=== PATIENT | male | born 1965 | race Caucasian/White ===

== ENCOUNTER 2019-06-12 19:05 | Emergency (ER) | payer OTHER ==
[2019-06-12 19:29] VITALS: TEMP 98.6
--- NOTE | 2019-06-12 20:11 | ED ---
General Adult HPI - General Chief complaint: Extremity Injury, Lower Stated complaint: Leg swelling Time Seen by Provider: 06/12/19 19:33 Source: patient Mode of arrival: ambulatory Limitations: no limitations - History of Present Illness Initial comments: 53-year-old male patient presents to the emergency department today for evaluation of right lower leg swelling and rash. Patient states that about a week ago he tripped up the stairs and cold his calf and hamstring muscle. Patient states is improving however he was doing some gardening and pulling bushes from the ground the other day. States that he woke up today with swelling and redness over the right anterior lower leg. Patient denies any itching or burning to the area. Denies any pain to the region. States he does feel some tenderness in his calf muscle. Patient does have history of DVT and takes pradaxa. He denies any fever or chills. Denies history of similar symptoms. Has no other areas of rash over his body. Patient denies any recent rash, shortness breath, chest pain, abdominal pain, nausea, vomiting, diarrhea, constipation, back pain, numbness, tingling, dizziness, weakness, hematuria, dysuria, urinary urgency, urinary frequency, headache, visual changes, or any ot her complaints. - Related Data Allergies Allergy/AdvReac Type Severity Reaction Status Date / Time ketamine Allergy Hallucinati Verified 06/12/19 19:29 ons Penicillins Allergy Anaphylaxis Verified 06/12/19 19:29 Review of Systems ROS Statement: Those systems with pertinent positive or pertinent negative responses have been documented in the HPI. ROS Other: All systems not noted in ROS Statement are negative. Past Medical History Additional Past Medical History / Comment(s): stage 3 bile duct cancer History of Any Multi-Drug Resistant Organisms: None Reported Past Surgical History: No Surgical Hx Reported Past Psychological History: Bipolar Smoking Status: Never smoker Past Alcohol Use History: None Reported Past Drug Use History: None Reported General Exam Limitations: no limitations General appearance: alert, in no apparent distress, other ENT exam: Present: normal exam, normal oropharynx, mucous membranes moist Respiratory exam: Present: normal lung sounds bilaterally. Absent: respiratory distress, wheezes, rales, rhonchi, stridor Cardiovascular Exam: Present: regular rate, normal rhythm, normal heart sounds. Absent: systolic murmur, diastolic murmur, rubs, gallop, clicks Extremities exam: Present: full ROM, normal capillary refill, other (Right lower leg swelling, there is erythematous/petechial rash noted to the anterior aspect of the vazquez. Edema is nonpitting. Pedal and posttibial pulses are 2+ and equal.). Absent: normal inspection, tenderness, pedal edema, joint swelling, calf tenderness Neurological exam: Present: alert, oriented X3, CN II-XII intact Psychiatric exam: Present: normal affect, normal mood Skin exam: Present: warm, dry, intact, normal color. Absent: rash Course Vital Signs 06/12/19 06/12/19 19:25 20:52 Temperature 98.6 F Pulse Rate 78 76 Respiratory 18 16 Rate Blood Pressure 149/90 146/83 O2 Sat by Pulse 96 100 Oximetry Medical Decision Making - Medical Decision Making 53-year-old male patient presented to the emergency department today for evaluation of right lower leg swelling and rash. Patient has history of DVT currently taking Pradaxa. Physical examination did reveal edema to the right lower leg and foot. There is petechial/erythematous rash noted to the anterior right lower leg. Pedal and posttibial pulses 2+ and equal bilaterally. Patient is afebrile. Labs reviewed and are unremarkable. Ultrasound of the right lower extremity was obtained and showed evidence for DVT to the right femoral, popliteal, and proximal calf veins. Given patient's history DVT and anticoagulation and presence of proximal vein involvement we'll admit to the [facility] for further evaluation. He'll be started on high-dose heparin. - Lab Data Result diagrams: 06/12/19 20:16 06/12/19 20:16 Lab Results 06/12/19 06/12/19 06/12/19 Range/Units 20:16 20:16 20:16 WBC 5.3 (3.8-10.6) k/uL RBC 3.38 L (4.30-5.90) m/uL Hgb 10.7 L (13.0-17.5) gm/dL Hct 31.0 L (39.0-53.0) % MCV 91.8 (80.0-100.0) fL MCH 31.6 (25.0-35.0) pg MCHC 34.4 (31.0-37.0) g/dL RDW 17.2 H (11.5-15.5) % Poikilocytosis Slight Anisocytosis Slight PT 10.0 (9.0-12.0) sec INR 0.9 (<1.2) APTT 29.0 (22.0-30.0) sec Sodium 139 (137-145) mmol/L Potassium 4.4 (3.5-5.1) mmol/L Chloride 110 H (98-107) mmol/L Carbon Dioxide 23 (22-30) mmol/L Anion Gap 6 mmol/L BUN 20 (9-20) mg/dL Creatinine 0.95 (0.66-1.25) mg/dL Est GFR (CKD-EPI)AfAm >90 (>60 ml/min/1.73 sqM) Est GFR (CKD-EPI)NonAf >90 (>60 ml/min/1.73 sqM) Glucose 113 H (74-99) mg/dL Calcium 8.7 (8.4-10.2) mg/dL Total Bilirubin 0.2 (0.2-1.3) mg/dL AST 18 (17-59) U/L ALT 22 (21-72) U/L Alkaline Phosphatase 82 (38-126) U/L Total Protein 6.6 (6.3-8.2) g/dL Albumin 3.7 (3.5-5.0) g/dL - Radiology Data Radiology results: report reviewed Venous Doppler duplex ultrasound of the right lower extremity was obtained. Report is reviewed in its entirety. Impression by Dr. Yadav shows acute deep venous thrombosis in the distal femoral vein, popliteal vein, and the calf veins. Disposition Clinical Impression: Right leg DVT Disposition: ADMITTED IP TO THIS [facility] Condition: Serious Referrals: Nonstaff,Physician [Primary Care Provider] - 1-2 days Decision to Admit Reason: Admit from EC Decision Date: 06/12/19 Decision Time: 20:57
--- NOTE | 2019-06-12 20:18 | US ---
EXAMINATION TYPE: US venous doppler duplex LE RT DATE OF EXAM: 06/12/2019 8:08 PM COMPARISON: NONE CLINICAL HISTORY: Pain. Right calf pain, swelling and redness. Patient stated fell off stairs 5 days ago; prior PE and left leg DVT / on blood thinner SIDE PERFORMED: Right TECHNIQUE: The lower extremity deep venous system is examined utilizing real time linear array sonog bola with graded compression, doppler sonography and color-flow sonography. VESSELS IMAGED: Common Femoral Vein Deep Femoral Vein Greater Saphenous Vein * Femoral Vein Popliteal Vein Small Saphenous Vein * Proximal Calf Veins (* superficial vessels) Right Leg: is positive for DVT Right Femoral Vein, Right Popliteal Vein; and in Upper Calf Veins IMPRESSION: There is acute deep venous in the distal femoral vein, popliteal vein and the calf veins.
[2019-06-12] MEDS ORDERED: HEPARIN SODIUM,PORCINE 10,000 UNIT/ML 1 ML VIAL IV ONE (20:32)
[2019-06-12] MEDS ORDERED: HEPARIN SODIUM,PORCINE 5,000 UNIT/ML 1 ML VIAL IV PRN (20:32)
[2019-06-12 20:34] LABS: INR 0.9 (<1.2)
[2019-06-12 20:37] LABS: ALT 22 U/L (21-72); AST 18 U/L (17-59); African American GFR (CKD) >90 (>60 ml/min/1.73 sqM); Albumin 3.7 g/dL (3.5-5.0); Alkaline Phosphatase 82 U/L (38-126); Anion Gap 6 mmol/L; Anisocytosis Slight; Blood Urea Nitrogen 20 mg/dL (9-20); Calcium 8.7 mg/dL (8.4-10.2); Carbon Dioxide 23 mmol/L (22-30); Chloride 110 mmol/L (98-107); Glucose 113 mg/dL (74-99); HGB 10.7 gm/dL (13.0-17.5); MCH 31.6 pg (25.0-35.0); MCHC 34.4 g/dL (31.0-37.0); MCV 91.8 fL (80.0-100.0); Mean Platelet Volume 8.8; Poikilocytosis Slight; Potassium 4.4 mmol/L (3.5-5.1); RBC 3.38 m/uL (4.30-5.90); RDW 17.2 % (11.5-15.5); Sodium 139 mmol/L (137-145); Total Bilirubin 0.2 mg/dL (0.2-1.3); Total Protein 6.6 g/dL (6.3-8.2); WBC 5.3 k/uL (3.8-10.6)
[2019-06-12] MEDS ORDERED: HEPARIN SOD,PORK IN 0.45% NACL 25,000 UNIT in 0.45% NACL 1 250ML.BAG IV SCH (20:45)
[2019-06-12 20:54] VITALS: BP 146/83; PULSE 76; RESP 16
[2019-06-12] MEDS ORDERED: NALOXONE 0.4 MG/ML 1 ML VIAL IV PRN (20:55)
[2019-06-12 20:59] LABS: Basophils # (M) 0.05 k/uL (0-0.2); Eosinophils # (M) 0.16 k/uL (0-0.7); Lymphocytes # (M) 2.12 k/uL (1.0-4.8); Monocytes # (M) 0.37 k/uL (0-1.0); Neutrophils % (M) 49 %; Nucleated Red Blood Cells 0 /100 WBC (0-0); Total Cells Counted 100
[2019-06-12 21:00] LABS: Platelet Count 88 k/uL (150-450)
[2019-06-12] MEDS ORDERED: SODIUM CHLORIDE 0.9% 1,000 ML IV SCH (21:00)
--- NOTE | 2019-06-12 21:59 | ED ---
Medical Decision Making - Medical Decision Making 53-year-old male patient presents to the emergency department today for evaluation of right leg swelling, discomfort, and rash. Physical examination did reveal edema to the right low leg and foot. Previous documentation for further history. Plan was for admission however he was seen and evaluated by Dr. Perkins from [facility]. Patient does have history of cancer and DVT . He has been on Lovenox in the past. He has appointment with his oncologist/mold presser on Saturday. He does feel comfortable being discharged home on lovenox. He is instructed to keep his appointment. Return parameters including s/sx of PE. He verbalizes understanding and agrees with this plan. - Lab Data Result diagrams: 06/12/19 20:16 06/12/19 20:16 Lab Results 06/12/19 06/12/19 06/12/19 Range/Units 20:16 20:16 20:16 WBC 5.3 (3.8-10.6) k/uL RBC 3.38 L (4.30-5.90) m/uL Hgb 10.7 L (13.0-17.5) gm/dL Hct 31.0 L (39.0-53.0) % MCV 91.8 (80.0-100.0) fL MCH 31.6 (25.0-35.0) pg MCHC 34.4 (31.0-37.0) g/dL RDW 17.2 H (11.5-15.5) % Plt Count 88 L (150-450) k/uL Neutrophils % (Manual) 49 % Lymphocytes % (Manual) 40 % Monocytes % (Manual) 7 % Eosinophils % (Manual) 3 % Basophils % (Manual) 1 % Neutrophils # (Manual) 2.60 (1.3-7.7) k/uL Lymphocytes # (Manual) 2.12 (1.0-4.8) k/uL Monocytes # (Manual) 0.37 (0-1.0) k/uL Eosinophils # (Manual) 0.16 (0-0.7) k/uL Basophils # (Manual) 0.05 (0-0.2) k/uL Nucleated RBCs 0 (0-0) /100 WBC Manual Slide Review Performed Poikilocytosis Slight Anisocytosis Slight PT 10.0 (9.0-12.0) sec INR 0.9 (<1.2) APTT 29.0 (22.0-30.0) sec Sodium 139 (137-145) mmol/L Potassium 4.4 (3.5-5.1) mmol/L Chloride 110 H (98-107) mmol/L Carbon Dioxide 23 (22-30) mmol/L Anion Gap 6 mmol/L BUN 20 (9-20) mg/dL Creatinine 0.95 (0.66-1.25) mg/dL Est GFR (CKD-EPI)AfAm >90 (>60 ml/min/1.73 sqM) Est GFR (CKD-EPI)NonAf >90 (>60 ml/min/1.73 sqM) Glucose 113 H (74-99) mg/dL Calcium 8.7 (8.4-10.2) mg/dL Total Bilirubin 0.2 (0.2-1.3) mg/dL AST 18 (17-59) U/L ALT 22 (21-72) U/L Alkaline Phosphatase 82 (38-126) U/L Total Protein 6.6 (6.3-8.2) g/dL Albumin 3.7 (3.5-5.0) g/dL Disposition Clinical Impression: Right leg DVT Disposition: HOME SELF-CARE Condition: Good Instructions (If sedation given, give patient instructions): Poison Suni (ED), Deep Vein Thrombosis (ED) Additional Instructions: Continue Lovenox. Continue home medications as directed. Follow-up with your mold presser/oncologist as soon as possible. Return immediately should she develop any chest pain, shortness of breath, racing heart. Return for any other new, worsening, or concerning symptoms. Prescriptions: Hydrocortisone Cream [Hydrocortisone 2.5% Cream] 1 applic TOPICAL TID #15 gm Enoxaparin [Lovenox] 120 mg SQ Q12H #14 syringe Is patient prescribed a controlled substance at d/c from ED?: No Referrals: Nonstaff,Physician [Primary Care Provider] - 1-2 days Time of Disposition: 21:59
[2019-06-12] MEDS ORDERED: ENOXAPARIN 120 MG/0.8 ML SYRINGE SQ STA (22:05)
== END 2019-06-12 22:24 | disposition home or self-care (01) ==
LOC: EC 19:05 → 4MS4W 20:23 → UNDOADMIN 20:23 → EC 22:24
DX: I82.411 Acute embolism and thrombosis of right femoral vein (principal); I82.431 Acute embolism and thrombosis of right popliteal vein; Z88.0 Allergy status to penicillin; Z88.4 Allergy status to anesthetic agent; Z85.09 Personal history of malignant neoplasm of other digestive organs
CPT/HCPCS: 36415; 80053; 85025; 85610; 85730; 93971; 99284; 96365; 96376; 96372; J1644 ×2; J1650

== ENCOUNTER 2019-06-23 16:10 | Inpatient (IN) | payer OTHER ==
--- NOTE | 2019-06-23 16:28 | ED ---
General Adult HPI - General Chief complaint: Shortness of Breath Stated complaint: sent by has large PE RT LUNG Time Seen by Provider: 06/23/19 16:19 Source: patient, RN notes reviewed Mode of arrival: wheelchair Limitations: no limitations - History of Present Illness Initial comments: Patient is a pleasant 53-year-old male presenting to the emergency department for reported pulmonary embolism. Patient states he was in the emergency department a few weeks ago and diagnosed with DVT. Patient is on Lovenox since that time, 120 mg twice a day. Patient denies any symptoms at this point. No chest pain or difficulty breathing. Patient does have known stage III gallbladder cancer that is in his doctor. Patient is currently under chemotherapy for this. Last treatment was one week ago. Patient was called after his computed tomography scan today and advised to go to the emergency department. Patient does not have report or copy of the CD. - Related Data Home Medications Medication Instructions Recorded Confirmed Citalopram Hydrobromide [CeleXA] 40 mg PO DAILY 06/12/19 06/23/19 lamoTRIgine [LaMICtal] 100 mg PO DAILY 06/12/19 06/23/19 Previous Rx's Medication Instructions Recorded Enoxaparin [Lovenox] 120 mg SQ Q12H #14 syringe 06/12/19 Allergies Allergy/AdvReac Type Severity Reaction Status Date / Time ketamine Allergy Hallucinati Verified 06/23/19 16:36 ons Penicillins Allergy Anaphylaxis Verified 06/23/19 16:36 Review of Systems ROS Statement: Those systems with pertinent positive or pertinent negative responses have been documented in the HPI. ROS Other: All systems not noted in ROS Statement are negative. Constitutional: Denies: fever Eyes: Denies: eye pain ENT: Denies: ear pain Respiratory: Denies: cough, dyspnea Cardiovascular: Denies: chest pain, palpitations Endocrine: Denies: fatigue Gastrointestinal: Denies: abdominal pain Genitourinary: Denies: dysuria Musculoskeletal: Denies: back pain Skin: Denies: rash Neurological: Denies: weakness Past Medical History Past Medical History: Deep Vein Thrombosis (DVT), Pulmonary Embolus (PE) Additional Past Medical History / Comment(s): stage 3 bile duct cancer History of Any Multi-Drug Resistant Organisms: None Reported Past Surgical History: No Surgical Hx Reported Past Psychological History: Bipolar Smoking Status: Never smoker Past Alcohol Use History: None Reported Past Drug Use History: None Reported General Exam Limitations: no limitations General appearance: alert, in no apparent distress Head exam: Present: atraumatic Eye exam: Present: normal appearance, PERRL ENT exam: Present: normal oropharynx Neck exam: Present: normal inspection Respiratory exam: Present: normal lung sounds bilaterally. Absent: chest wall tenderness Cardiovascular Exam: Present: regular rate, normal rhythm Expanded Peripheral pulses: 2+: Posterior Tibialis (R), Posterior Tibialis (L) GI/Abdominal exam: Present: soft. Absent: tenderness Extremities exam: Present: pedal edema (+1 on the right). Absent: calf tenderness Neurological exam: Present: alert Psychiatric exam: Present: normal affect, normal mood Skin exam: Present: normal color Course Vital Signs 06/23/19 06/23/19 16:11 18:15 Temperature 97.8 F Pulse Rate 88 74 Respiratory 18 20 Rate Blood Pressure 174/75 147/90 O2 Sat by Pulse 97 98 Oximetry - Reevaluation(s) Reevaluation #1: 06/23/19 16:26 [facility] is being contacted now for results. 06/23/19 17:27 Still unable to get a hold of anybody at [facility] for information. Case was discussed with Dr. Navarro who does agree with high dose heparin and admission. 06/23/19 18:34 CT report was received from [facility] showing right-sided pulmonary emboli, acute. 2 lesser degree left lingula and left lower lobe pulmonary emboli. No definite evidence of right heart strain. 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 EKG Findings - EKG Comments: EKG Findings:: Normal sinus rhythm 79. W[place] 168. QRS 94. QT 398. QTC 456. Normal axis. Normal QRS. No acute ST change. Medical Decision Making - Medical Decision Making Case was discussed with Dr. novak for admission. He will let Dr. Kleber rebolledo about case and have them call back. - Lab Data Result diagrams: 06/23/19 17:00 06/23/19 17:00 Lab Results 06/23/19 06/23/19 06/23/19 Range/Units 17:00 17:00 17:00 WBC 3.3 L (3.8-10.6) k/uL RBC 3.54 L (4.30-5.90) m/uL Hgb 10.8 L (13.0-17.5) gm/dL Hct 32.2 L (39.0-53.0) % MCV 90.9 (80.0-100.0) fL MCH 30.5 (25.0-35.0) pg MCHC 33.6 (31.0-37.0) g/dL RDW 17.0 H (11.5-15.5) % Plt Count 116 L (150-450) k/uL Anisocytosis Slight PT 9.8 (9.0-12.0) sec INR 0.9 (<1.2) APTT 29.0 (22.0-30.0) sec Sodium 139 (137-145) mmol/L Potassium 3.8 (3.5-5.1) mmol/L Chloride 107 (98-107) mmol/L Carbon Dioxide 24 (22-30) mmol/L Anion Gap 8 mmol/L BUN 13 (9-20) mg/dL Creatinine 0.91 (0.66-1.25) mg/dL Est GFR (CKD-EPI)AfAm >90 (>60 ml/min/1.73 sqM) Est GFR (CKD-EPI)NonAf >90 (>60 ml/min/1.73 sqM) Glucose 127 H (74-99) mg/dL Calcium 9.1 (8.4-10.2) mg/dL Total Bilirubin 0.3 (0.2-1.3) mg/dL AST 36 (17-59) U/L ALT 111 H (21-72) U/L Alkaline Phosphatase 96 (38-126) U/L Troponin I (0.000-0.034) ng/mL Total Protein 6.9 (6.3-8.2) g/dL Albumin 3.9 (3.5-5.0) g/dL 06/23/19 Range/Units 17:00 WBC (3.8-10.6) k/uL RBC (4.30-5.90) m/uL Hgb (13.0-17.5) gm/dL Hct (39.0-53.0) % MCV (80.0-100.0) fL MCH (25.0-35.0) pg MCHC (31.0-37.0) g/dL RDW (11.5-15.5) % Plt Count (150-450) k/uL Anisocytosis PT (9.0-12.0) sec INR (<1.2) APTT (22.0-30.0) sec Sodium (137-145) mmol/L Potassium (3.5-5.1) mmol/L Chloride (98-107) mmol/L Carbon Dioxide (22-30) mmol/L Anion Gap mmol/L BUN (9-20) mg/dL Creatinine (0.66-1.25) mg/dL Est GFR (CKD-EPI)AfAm (>60 ml/min/1.73 sqM) Est GFR (CKD-EPI)NonAf (>60 ml/min/1.73 sqM) Glucose (74-99) mg/dL Calcium (8.4-10.2) mg/dL Total Bilirubin (0.2-1.3) mg/dL AST (17-59) U/L ALT (21-72) U/L Alkaline Phosphatase (38-126) U/L Troponin I <0.012 (0.000-0.034) ng/mL Total Protein (6.3-8.2) g/dL Albumin (3.5-5.0) g/dL Critical Care Time Critical Care Time: Yes Total Critical Care Time: 31 Disposition Clinical Impression: Pulmonary embolism Disposition: ADMITTED IP TO THIS HOSP Is patient prescribed a controlled substance at d/c from ED?: No Referrals: Nonstaff,Physician [Primary Care Provider] - 1-2 days Decision Time: 18:35
[2019-06-23] MEDS ORDERED: HEPARIN SODIUM,PORCINE 5,000 UNIT/ML 1 ML VIAL IV PRN (17:27)
[2019-06-23] MEDS ORDERED: HEPARIN SODIUM,PORCINE 10,000 UNIT/ML 1 ML VIAL IV ONE (17:27)
[2019-06-23 17:32] LABS: INR 0.9 (<1.2); Prothrombin Time 9.8 sec (9.0-12.0)
[2019-06-23 17:42] LABS: Anisocytosis Slight; HCT 32.2 % (39.0-53.0); HGB 10.8 gm/dL (13.0-17.5); MCH 30.5 pg (25.0-35.0); MCHC 33.6 g/dL (31.0-37.0); MCV 90.9 fL (80.0-100.0); Mean Platelet Volume 7.5; Platelet Count 116 k/uL (150-450); RBC 3.54 m/uL (4.30-5.90); WBC 3.3 k/uL (3.8-10.6)
[2019-06-23 17:43] LABS: ALT 111 U/L (21-72); AST 36 U/L (17-59); African American GFR (CKD) >90 (>60 ml/min/1.73 sqM); Albumin 3.9 g/dL (3.5-5.0); Alkaline Phosphatase 96 U/L (38-126); Anion Gap 8 mmol/L; Blood Urea Nitrogen 13 mg/dL (9-20); Calcium 9.1 mg/dL (8.4-10.2); Carbon Dioxide 24 mmol/L (22-30); Chloride 107 mmol/L (98-107); Glucose 127 mg/dL (74-99); Potassium 3.8 mmol/L (3.5-5.1); Sodium 139 mmol/L (137-145); Total Bilirubin 0.3 mg/dL (0.2-1.3); Total Protein 6.9 g/dL (6.3-8.2)
[2019-06-23] MEDS: HEPARIN SOD,PORK IN 0.45% NACL 25,000 UNIT in 0.45% NACL 1 250ML.BAG IV SCH (18:20)
[2019-06-23] MEDS ORDERED: SODIUM CHLORIDE 0.9% 500 ML 500 ML IV SCH (18:30)
[2019-06-23] MEDS ORDERED: NALOXONE 0.4 MG/ML 1 ML VIAL IV PRN (18:35)
[2019-06-23] MEDS ORDERED: SODIUM CHLORIDE 0.9% 1,000 ML IV SCH (18:45)
[2019-06-23 18:46] LABS: Band Neutrophils % 4 %; Eosinophils # (M) 0.03 k/uL (0-0.7); Lymphocytes # (M) 1.68 k/uL (1.0-4.8); Metamyelocytes # (M) 0.17 k/uL (0); Metamyelocytes % 5 %; Myelocytes # (M) 0.23 k/uL (0); Myelocytes % 7 %; Neutrophils % (M) 28 %; Nucleated Red Blood Cells 0 /100 WBC (0-0); Total Cells Counted 200
[2019-06-23 18:47] LABS: Anisocytosis (M) Present; Hypochromasia (M) Present; Poikilocytosis (M) Present; Polychromasia Present
[2019-06-23] MEDS ORDERED: diphenhydrAMINE 25 MG CAP PO PRN (21:30)
--- NOTE | 2019-06-23 22:13 | P.HPIM ---
History of Present Illness H&P Date: 06/23/19 Chief Complaint: acute PE 53 year old male with history of bile duct cancer, stage 3 currently on chemotherapy , diagnosed September 2018 patient was diagnosed with acute right LE DVT involving his right femoral and popliteal vein and extends to the calf vein, about 2 weeks ago, then he was started on lovenox through [facility] . he has been taking 120 mg twice aday since diagnosis. today he got routine CT for follow up on his cancer, he received a phone call later by his doctor from [facility] , informing him that bilateral PE was found and recommending that he goes to the hospital for evaluation. patient denies any symptoms fo chest pain, SOB, fever or chills. he reports that symptoms of leg swelling and discomfort has resolved since he started the luis enox. patient admitted for monitoring and further evaluation. CT report did not show any right heart strain. patient was started on high dose heparin drip per pulmonary recommendations. labs showed mild anemia and thrombocytopenia . patient recalls history of PE in 2006 after an accident. however this time, he reports an injury couple weeks ago to his LE, and also admits to prolonged periods of bed rest especially after chemotherapy. otherwise denies any traveling or recent surgeries. He reports that the day of diagnosis , [place] , and noticed leg swelling after [place] the zoo with [place]. Review of Systems Pertinent positives as noted in HPI. All other systems were reviewed and are negative Past Medical History Past Medical History: Deep Vein Thrombosis (DVT), Pulmonary Embolus (PE) Additional Past Medical History / Comment(s): stage 3 bile duct cancer History of Any Multi-Drug Resistant Organisms: None Reported Past Surgical History: No Surgical Hx Reported Past Psychological History: Bipolar Smoking Status: Never smoker Past Alcohol Use History: None Reported Past Drug Use History: None Reported - Past Family History family Additional Family Medical History / Comment(s): denies history of blood clots in the family Medications and Allergies Home Medications Medication Instructions Recorded Confirmed Type Citalopram Hydrobromide [CeleXA] 40 mg PO DAILY 06/12/19 06/23/19 History Enoxaparin [Lovenox] 120 mg SQ Q12H #14 syringe 06/12/19 06/23/19 Rx lamoTRIgine [LaMICtal] 100 mg PO DAILY 06/12/19 06/23/19 History Allergies Allergy/AdvReac Type Severity Reaction Status Date / Time ketamine Allergy Hallucinati Verified 06/23/19 16:36 ons Penicillins Allergy Anaphylaxis Verified 06/23/19 16:36 Physical Exam Vitals: Vital Signs Temp Pulse Resp BP Pulse Ox 06/23/19 18:15 74 20 147/90 98 06/23/19 16:11 97.8 F 88 18 174/75 97 Intake and Output 06/23/19 06/23/19 06/23/19 06:59 14:59 22:59 Other: Weight 122.515 kg Constitutional: No acute distress, conversant, pleasant Eyes: Anicteric sclerae, moist conjunctiva, no lid-lag Pupils equal round reactive to light ENMT: NC/AT Oropharynx clear, no erythema, or exudates Neck: Supple, FROM, no masses, or JVD No carotid bruits No thyromegaly Lungs: Clear to auscultation Clear to percussion Normal respiratory effort, no accessory muscle use Cardiovascular: Heart regular in rate and rhythm, No murmurs, gallops, or rubs No peripheral edema Abdominal: Soft Nontender, no guarding, rebound or rigidity Abdomen moving with respiration Normoactive bowel sounds No hepatomegaly, No splenomegaly No palpable mass No abdominal wall hernia noted Skin: Normal temperature, tone, texture, turgor No induration No subcutaneous nodules No rash, lesions No ulcers Extremities: No digital cyanosis No clubbing Pedal pulses intact and symmetrical Radial pulses intact and symmetrical No calf tenderness Psychiatric: Alert and oriented to person, place and time Appropriate affect fair judgment Neuro Muscles Strength 5/5 in all 4 extremities Sensation to light touch grossly present throughout Cranial nerves II-XII grossly intact No focal sensory deficits Lymphatics: no palpable cervical or supraclavicular , or inguinal lymph nodes Results CBC & Chem 7: 06/23/19 17:00 06/23/19 17:00 Labs: Abnormal Lab Results - Last 24 Hours (Table) 06/23/19 06/23/19 Range/Units 17:00 17:00 WBC 3.3 L (3.8-10.6) k/uL RBC 3.54 L (4.30-5.90) m/uL Hgb 10.8 L (13.0-17.5) gm/dL Hct 32.2 L (39.0-53.0) % RDW 17.0 H (11.5-15.5) % Plt Count 116 L (150-450) k/uL Neutrophils # (Manual) 1.00 L (1.3-7.7) k/uL Metamyelocytes # (Man) 0.17 H (0) k/uL Myelocytes # (Manual) 0.23 H (0) k/uL Glucose 127 H (74-99) mg/dL ALT 111 H (21-72) U/L Assessment and Plan Assessment: 53 year old male with gall bladder cancer stage 3, admitted as inpatient with anticipated length of stay >48 hours due to aucte PE, recently diagnosed with right LE DVT. Plan: acute pulmonary embolism , with recent diagnosis of right DVT start heparin drip monitor vital sings closely assess oxygen requirement patient was told that he would be switched to NOAC once he is done with chemotherapy CT from [facility] showed no evidence of Right RV strain patient would be a life long anticoagulation , this is his second episode of PE. history of gall bladder cancer stage 3 on chemotherapy continue OP follow up CODE STATUS:full code Discussed with: Patient, ER, RN Anticipated discharge: 48-[address]: home A total of 60 minutes was spent on the care of this complex patient more than 50% of the time was spent in counseling and care coordination.
[2019-06-24 01:02] VITALS: BMI 38.7
[2019-06-24] MEDS: HEPARIN SOD,PORK IN 0.45% NACL 25,000 UNIT in 0.45% NACL 1 250ML.BAG IV SCH (06:18)
[2019-06-24 07:30] LABS: Anisocytosis Slight; HCT 31.2 % (39.0-53.0); HGB 10.2 gm/dL (13.0-17.5); MCHC 32.8 g/dL (31.0-37.0); MCV 91.4 fL (80.0-100.0); Mean Platelet Volume 7.7; RBC 3.41 m/uL (4.30-5.90); RDW 17.6 % (11.5-15.5)
[2019-06-24 07:40] LABS: Platelet Count 83 k/uL (150-450)
[2019-06-24 08:02] LABS: Band Neutrophils % 5 %; Eosinophils # (M) 0.08 k/uL (0-0.7); Metamyelocytes # (M) 0.12 k/uL (0); Metamyelocytes % 3 %; Monocytes # (M) 0.44 k/uL (0-1.0); Neutrophils % (M) 46 %; Nucleated Red Blood Cells 1 /100 WBC (0-0); Total Cells Counted 200
[2019-06-24 08:03] LABS: Polychromasia Present
[2019-06-24] MEDS ORDERED: lamoTRIgine 100 MG TAB PO SCH (09:00)
[2019-06-24] MEDS ORDERED: CITALOPRAM HYDROBROMIDE 20 MG TAB PO SCH (09:00)
[2019-06-24] MEDS ORDERED: PANTOPRAZOLE 40 MG/10 ML VIAL IV SCH (09:00)
--- NOTE | 2019-06-24 14:14 | P.DS ---
Providers Date of admission: 06/23/19 18:35 Expected date of discharge: 06/24/19 Attending physician: Alvin Hardy MD Consults: 06/23/19 18:37 Consult Physician Urgent Consulting Provider: Karthikeyan Potter Reason/Comments: Pulmonary embolism Do you want consulting provider notified?: Already Contacted Primary care physician: Physician Nonstaff Hospital Course: 53-year-old male with PMH of stage III bile duct cancer, previous history of DVT and PE presents to the ED after being found to have bilateral PE on routine chest CT that he was getting for his cancer. Patient otherwise had no symptoms. He denied any chest pain, shortness of breath or palpitations. Patient reports being started initially on Pradaxa after his last DVT. Patient states that he was noncompliant with his Pradaxa and was admitted for acute PE. He was discharged on therapeutic Lovenox twice a day and has been compliant since. His been on Lovenox for the past 2 weeks. Patient was seen and examined. No acute events overnight. Patient denies any chest pain, shortness of breath or palpitations. No nausea or vomiting. No fever or chills. Wanting to go home. General: [non toxic], [no distress], [appears at stated age] Derm: [warm], [dry] Head: [atraumatic], [normocephalic], [symmetric] Eyes: [EOMI], [no lid lag], [anicteric sclera] Mouth: [no lip lesion], [mucus membranes moist] Cardiovascular: [S1S2 reg], [no murmur], [positive DP pulse bilateral] Lungs: [CTA bilateral], [no rhonchi, no rales] , [no accessory muscle use] Abdominal: [soft], [ nontender to palpation], [no guarding], [no appreciable organomegaly] Ext: [no gross muscle atrophy], [no edema], [no contractures] Neuro: [no focal neuro deficits] Psych: [Alert], [oriented], [appropriate affect] Assessment and Plan Acute PE with recent diagnosis of right DVT Gallbladder cancer stage III on chemotherapy Patient is hemodynamically stable. No right heart strain on CTA chest. Plans: Would recommend continuation of therapeutic Lovenox. Plans to transition to Pradaxa after chemotherapy. Follow pulmonology consultation. Plans: Needs adequate outpatient follow-up. [Patient will be discharged home pending pulmonology clearance. Likely to continue taking Lovenox 120 mg subcutaneous twice a day. Needs to follow with oncologist] Patient Condition at Discharge: Stable Plan - Discharge Summary Discharge Rx Participant: No New Discharge Prescriptions: Continue lamoTRIgine [LaMICtal] 100 mg PO DAILY Citalopram Hydrobromide [CeleXA] 40 mg PO DAILY Enoxaparin [Lovenox] 120 mg SQ Q12H #14 syringe Discharge Medication List Citalopram Hydrobromide [CeleXA] 40 mg PO DAILY 06/12/19 [History] Enoxaparin [Lovenox] 120 mg SQ Q12H #14 syringe 06/12/19 [Rx] lamoTRIgine [LaMICtal] 100 mg PO DAILY 06/12/19 [History] Follow up Appointment(s)/Referral(s): Nonstaff,Physician [Primary Care Provider] - 1-2 days Karthikeyan Potter DO [Doctor of Osteopathic Medicine] - 1 Week Activity/Diet/Wound Care/Special Instructions: Diet: Heart healthy Follow-up PCP within 1-2 days of discharge. Follow-up with your oncologist within 1 week of discharge. Follow-up with pulmonology within 1 week of discharge. Take all medications as advised. Discharge Disposition: HOME SELF-CARE
[2019-06-24] MEDS ORDERED: ENOXAPARIN 100 MG/ML SYRINGE SQ STA (15:49)
[2019-06-24 16:44] VITALS: BP 128/82; PULSE 69; RESP 18; TEMP 96.9
--- NOTE | 2019-06-24 21:58 | CONS ---
CONSULTATION PULMONARY/CRITICAL CARE CONSULTATION: DATE OF SERVICE: 06/24/2019 This is a 53-year-old male who has a history of biliary cancer who apparently was sent to the emergency room because of a CT angiogram done at the [facility] in [place] which apparently revealed evidence of a large clot/pulmonary embolism in the right lung. Interestingly, the patient is completely asymptomatic. He denies any shortness of breath, chest tightness, cough, wheezing, phlegm production, fever, chills, chest pain, chest discomfort, etc. He apparently was in the emergency room a few weeks back and apparently was diagnosed with acute DVT and has since been on Lovenox 120 mg subcutaneously twice a day. He apparently had been taking the Lovenox usually in the morning but sometimes missing his evening dose. When I spoke to Dr. Gupta in the emergency room yesterday, Dr. Gupta apparently did not have the report of the CT angiogram that was done at the [facility]. That report is now in the medical record. The patient is doing well and would like to be discharged home. Of course, that is up to his primary care provider. HOME MEDICATIONS: His home medications include Lamictal and Celexa. He is also on Lovenox 120 mg subcutaneously twice a day. ALLERGIES: KETAMINE and PENICILLIN. PAST MEDICAL HISTORY: Past medical history is apparently positive for DVT and more recently a large pulmonary embolism in the right lung. He also has advanced bile duct cancer. SURGICAL HISTORY: Surgical history is negative. SOCIAL HISTORY: Negative for alcohol, tobacco or illicit drug use. FAMILY HISTORY: Apparently unremarkable. I do take care of Nima's father, who has chronic obstructive pulmonary disease. I believe Nima's father was a smoker. The rest of his family history is unremarkable. REVIEW OF SYSTEMS: CONSTITUTIONAL: Negative. NEUROLOGIC: Negative. HEENT: Negative. CARDIOVASCULAR: Negative. PULMONARY: Negative. GI: Negative. : Negative. RHEUMATOLOGIC: Negative. IMMUNOLOGIC: Negative. ENDOCRINOLOGIC: Negative. DERMATOLOGIC: Negative. PHYSICAL EXAMINATION: VITAL SIGNS: Current vital signs are reviewed. Temperature 98.1, heart rate 65, respiratory rate 16, blood pressure 130/76, mean 94, room-air saturation 97%. GENERAL: Appears in no acute distress. HEENT: HEENT examination is grossly unremarkable. No supplemental oxygen. NECK: Supple. Full range of motion. No adenopathy. CARDIOVASCULAR: Cardiovascular examination reveals regular rhythm and rate. Heart rate 65. S1, S2 normal. LUNGS: Relatively clear breath sounds. No wheezes, rhonchi or crackles. ABDOMEN: Soft. Bowel sounds are heard. EXTREMITIES: Intact. No cyanosis, clubbing or edema. SKIN: Without rash. NEUROLOGIC: Neurologic examination is brief but nonfocal. LAB DATA: Reviewed. White count 4, hemoglobin 10.2, hematocrit 31.2, platelet count 83,000. His PT, INR, and PTT are normal. More recently he was on IV heparin. That has been discontinued. Sodium, potassium, chloride, CO2 normal. BUN is 13, creatinine 0.91. The rest of the labs look okay. Anion gap is normal. Medications are reviewed. He is basically just on Celexa, Benadryl, Lovenox, IV heparin, which has been discontinued, Lamictal, Narcan, Protonix and a basic IV. EKG shows normal sinus rhythm. ASSESSMENT: 1. Asymptomatic right-sided pulmonary embolism. 2. History of deep venous thrombosis. 3. Stage III cholangiocarcinoma. PLAN: The patient may be discharged home today. He is going to go home on Lovenox, which is 1 mg/kg body weight twice a day subcutaneously. [facility]. No additional recommendations are made. We will continue to follow. Prognosis is guarded, given his stage III cholangiocarcinoma. MMODL / IJN: [id number] /
== END 2019-06-24 16:41 | disposition home or self-care (01) | DRG 176 ==
LOC: EC 16:10 → 3SCARD 18:35
PROVIDERS: ADMIT Internal Medicine; ATTEND Internal Medicine
DX: I26.99 Other pulmonary embolism without acute cor pulmonale (principal); C22.1 Intrahepatic bile duct carcinoma; C23 Malignant neoplasm of gallbladder; D64.9 Anemia, unspecified; D69.6 Thrombocytopenia, unspecified; Z79.01 Long term (current) use of anticoagulants; Z79.02 Long term (current) use of antithrombotics/antiplatelets; Z79.899 Other long term (current) drug therapy; Z82.5 Family history of asthma and other chronic lower respiratory diseases; Z86.711 Personal history of pulmonary embolism; Z86.718 Personal history of other venous thrombosis and embolism; T45.516A Underdosing of anticoagulants, initial encounter; Z91.128 Patient's intentional underdosing of medication regimen for other reason; Z88.0 Allergy status to penicillin; Z88.8 Allergy status to other drugs, medicaments and biological substances; F31.9 Bipolar disorder, unspecified
CPT/HCPCS: 36415; 80053; 83880; 84484; 85025; 85610; 85730; 93005; 96365; 96366; 96376; 99291

== ENCOUNTER 2019-09-11 18:09 | Inpatient (IN) | payer OTHER ==
[2019-09-11] MEDS ORDERED: ONDANSETRON 4 MG/2 ML VIAL IVP STA (18:31)
[2019-09-11] MEDS ORDERED: SODIUM CHLORIDE 0.9% 1,000 ML IV STA (18:32)
[2019-09-11 18:40] LABS: Basophils % (A) 1 %; Eosinophils # (A) 0.1 k/uL (0-0.7); Eosinophils % (A) 2 %; HGB 11.9 gm/dL (13.0-17.5); Lymphocytes # (A) 0.4 k/uL (1.0-4.8); Lymphocytes % (A) 12 %; MCH 31.4 pg (25.0-35.0); MCV 92.2 fL (80.0-100.0); Mean Platelet Volume 7.2; Monocytes # (A) 0.3 k/uL (0-1.0); Monocytes % (A) 10 %; Neutrophils # (A) 2.3 k/uL (1.3-7.7); Neutrophils % (A) 71 %; RBC 3.79 m/uL (4.30-5.90); RDW 14.6 % (11.5-15.5); WBC 3.2 k/uL (3.8-10.6)
[2019-09-11 18:48] LABS: ALT 56 U/L (21-72); AST 34 U/L (17-59); African American GFR (CKD) >90 (>60 ml/min/1.73 sqM); Albumin 3.7 g/dL (3.5-5.0); Alkaline Phosphatase 86 U/L (38-126); Amylase 51 U/L (30-110); Anion Gap 7 mmol/L; Blood Urea Nitrogen 11 mg/dL (9-20); Calcium 8.7 mg/dL (8.4-10.2); Carbon Dioxide 21 mmol/L (22-30); Chloride 111 mmol/L (98-107); Glucose 102 mg/dL (74-99); Non-African American GFR(CKD) >90 (>60 ml/min/1.73 sqM); Potassium 3.7 mmol/L (3.5-5.1); Sodium 139 mmol/L (137-145); Total Bilirubin 0.2 mg/dL (0.2-1.3); Total Protein 6.9 g/dL (6.3-8.2)
[2019-09-11] MEDS ORDERED: MECLIZINE 12.5 MG TAB PO STA (18:56)
--- NOTE | 2019-09-11 19:18 | XR ---
EXAMINATION TYPE: XR KUB DATE OF EXAM: 09/11/2019 COMPARISON: NONE HISTORY: Pain TECHNIQUE: 2 views FINDINGS: There is 1.8 cm calculus over the right kidney. There is no sign of intestinal obstruction or pneumoperitoneum. There is 2 biliary stents noted. The lung bases are clear of consolidation. Bony structures are intact. IMPRESSION: Large right renal calculus. Biliary stents noted. Nonacute abdomen.
--- NOTE | 2019-09-11 19:28 | XR ---
EXAMINATION TYPE: XR chest 2V DATE OF EXAM: 09/11/2019 COMPARISON: 05/15/2011 HISTORY: Abdominal pain and nausea TECHNIQUE: Frontal and lateral views of the chest are obtained. FINDINGS: There is no heart failure nor confluent pneumonic infiltrate. Costophrenic angles are anjali r. There is a left central venous catheter with tip in the superior vena cava. Bony thorax is intact. IMPRESSION: No active cardiopulmonary disease. Normal heart. No change.
[2019-09-11 19:30] LABS: Anisocytosis (M) Present; Hypochromasia (M) Present; Platelet Count 91 k/uL (150-450); Poikilocytosis (M) Present
[2019-09-11] MEDS ORDERED: METOCLOPRAMIDE 5 MG/ML 2 ML VIAL IVP STA (20:06)
[2019-09-11] MEDS ORDERED: DIAZEPAM 5 MG/ML 2 ML INJ IVP STA (20:06)
--- NOTE | 2019-09-11 20:07 | ED ---
General Adult HPI - General Chief complaint: Nausea/Vomiting/Diarrhea Stated complaint: Nausea,Vomiting Time Seen by Provider: 09/11/19 18:19 Source: patient, EMS Mode of arrival: EMS Limitations: no limitations - History of Present Illness Initial comments: 53-year-old male with a past medical history of DVT, PE, states 3 bile duct cancer with last chemo treatment being 3 months ago presents to the emergency department for a chiefly of nausea vomiting. Patient states he ate [employer] around 1:30 and started to have symptoms of nausea vomiting around 3:30. He denies any abdominal pain associated with this. Denies any diarrhea. Denies any fevers or chills.Patient has no other complaints at this time including shortness of breath, chest pain, abdominal pain, headache, or visual changes. - Related Data Home Medications Medication Instructions Recorded Confirmed Citalopram Hydrobromide [CeleXA] 40 mg PO DAILY 06/12/19 06/23/19 lamoTRIgine [LaMICtal] 100 mg PO DAILY 06/12/19 06/23/19 Previous Rx's Medication Instructions Recorded Enoxaparin [Lovenox] 120 mg SQ Q12H #14 syringe 06/12/19 Allergies Allergy/AdvReac Type Severity Reaction Status Date / Time ketamine Allergy Hallucinati Verified 09/11/19 18:14 ons Penicillins Allergy Anaphylaxis Verified 09/11/19 18:14 Review of Systems ROS Statement: Those systems with pertinent positive or pertinent negative responses have been documented in the HPI. ROS Other: All systems not noted in ROS Statement are negative. Past Medical History Past Medical History: Deep Vein Thrombosis (DVT), Pulmonary Embolus (PE) Additional Past Medical History / Comment(s): stage 3 bile duct cancer History of Any Multi-Drug Resistant Organisms: None Reported Past Surgical History: No Surgical Hx Reported Past Psychological History: Bipolar, Depression Smoking Status: Never smoker Past Alcohol Use History: None Reported Past Drug Use History: None Reported - Past Family History family Additional Family Medical History / Comment(s): denies history of blood clots in the family General Exam Limitations: no limitations General appearance: alert, in no apparent distress Head exam: Present: atraumatic, normocephalic, normal inspection Eye exam: Present: normal appearance, PERRL, EOMI. Absent: scleral icterus, conjunctival injection, periorbital swelling ENT exam: Present: normal exam, mucous membranes moist Neck exam: Present: normal inspection, full ROM. Absent: tenderness, meningismus, lymphadenopathy Respiratory exam: Present: normal lung sounds bilaterally. Absent: respiratory distress, wheezes, rales, rhonchi, stridor Cardiovascular Exam: Present: regular rate, normal rhythm, normal heart sounds. Absent: systolic murmur, diastolic murmur, rubs, gallop, clicks GI/Abdominal exam: Present: soft, normal bowel sounds. Absent: distended, tenderness, guarding, rebound, rigid Neurological exam: Present: alert, oriented X3 Expanded Patient oriented to: Present: person, place, time Speech: Present: fluid speech Cranial nerves: EOM's Intact: Normal, Tongue Deviation: Normal, Nystagmus: Normal, Facial Sensation: Normal Cerebellar function: Finger to Nose: Normal, Heel to Polanco: Normal Upper motor neuron: Pronator Drift: Normal Sensory exam: Upper Extremity Light Touch: Normal, Upper Extremity Pin Prick: Normal, Lower Extremity Light Touch: Normal, Lower Extremity Pin Prick: Normal Motor strength exam: RUE: 5, LUE: 5, RLE: 5, LLE: 5 Eye Response: (4) open spontaneously Motor Response: (6) obeys commands Verbal Response: (5) oriented Upson Total: 15 Course Vital Signs 09/11/19 09/11/19 18:14 19:53 Temperature 97.9 F Pulse Rate 74 72 Respiratory 18 19 Rate Blood Pressure 134/73 137/72 O2 Sat by Pulse 97 98 Oximetry EKG Findings - EKG Comments: EKG Findings:: Normal sinus rhythm, ventricular rate 72, SD interval 170, QTC 488, prolonged QT noted on EKG however this is not appear significant Medical Decision Making - Medical Decision Making Patient was reevaluated, states that he actually is dizzy which he admits can be causing his nausea. Therefore CT brain was ordered. Patient presents for nausea vomiting 4 hours on presentation to the emergency department. Patient states he ate [employer] and then afterwards started to feel nauseous and has been vomiting. After quite some time patient stated he was dizzy as well. Patient unsure if the dizziness is causing this. However I did attempt to sit patient up and he began vomiting. He does not have any focal neurologic deficits. There is no shift. No weakness in any extremities. CBC shows a stable hemoglobin of 11.9 and a stable platelet count of 91. Troponin is negative. Discussed case with Dr. Marie, recommends noncontrast CT. CT brain was ordered which was negative. Chest x-ray and KUB are unremarkable as well. Patient was given Antivert and Zofran. A minimal improvement until attempted to sit patient up when he again vomited. Patient was then given Valium and reglan. At this point dizziness is - Lab Data Result diagrams: 09/11/19 18:20 09/11/19 18:20 Lab Results 09/11/19 09/11/19 09/11/19 Range/Units 18:20 18:20 18:50 WBC 3.2 L (3.8-10.6) k/uL RBC 3.79 L (4.30-5.90) m/uL Hgb 11.9 L (13.0-17.5) gm/dL Hct 35.0 L (39.0-53.0) % MCV 92.2 (80.0-100.0) fL MCH 31.4 (25.0-35.0) pg MCHC 34.0 (31.0-37.0) g/dL RDW 14.6 (11.5-15.5) % Plt Count 91 L (150-450) k/uL Neutrophils % 71 % Lymphocytes % 12 % Monocytes % 10 % Eosinophils % 2 % Basophils % 1 % Neutrophils # 2.3 (1.3-7.7) k/uL Lymphocytes # 0.4 L (1.0-4.8) k/uL Monocytes # 0.3 (0-1.0) k/uL Eosinophils # 0.1 (0-0.7) k/uL Basophils # 0.0 (0-0.2) k/uL Manual Slide Review Performed Hypochromasia (manual) Present Poikilocytosis (manual Present Anisocytosis (manual) Present Sodium 139 (137-145) mmol/L Potassium 3.7 (3.5-5.1) mmol/L Chloride 111 H (98-107) mmol/L Carbon Dioxide 21 L (22-30) mmol/L Anion Gap 7 mmol/L BUN 11 (9-20) mg/dL Creatinine 0.75 (0.66-1.25) mg/dL Est GFR (CKD-EPI)AfAm >90 (>60 ml/min/1.73 sqM) Est GFR (CKD-EPI)NonAf >90 (>60 ml/min/1.73 sqM) Glucose 102 H (74-99) mg/dL Calcium 8.7 (8.4-10.2) mg/dL Total Bilirubin 0.2 (0.2-1.3) mg/dL AST 34 (17-59) U/L ALT 56 (21-72) U/L Alkaline Phosphatase 86 (38-126) U/L Troponin I <0.012 (0.000-0.034) ng/mL Total Protein 6.9 (6.3-8.2) g/dL Albumin 3.7 (3.5-5.0) g/dL Amylase 51 (30-110) U/L Lipase 109 (23-300) U/L Disposition Clinical Impression: Dizziness, Vertigo Disposition: ADMITTED IP TO THIS HOSP Condition: Fair Is patient prescribed a controlled substance at d/c from ED?: No Referrals: None,Stated [Primary Care Provider] - 1-2 days Time of Disposition: 20:53
--- NOTE | 2019-09-11 20:27 | CT ---
EXAMINATION TYPE: CT brain wo con DATE OF EXAM: 09/11/2019 COMPARISON: None HISTORY: Dizziness, n/v starting today. Pt has stage III bile duct ca CT DLP: 1129.4 mGycm Automated exposure control for dose reduction was used. FINDINGS: Multiple axial sections were obtained of the brain without contrast. Ventricles have normal size. There is no mass effect nor midline shift. There is no sign of intracran ial hemorrhage. The calvarium is intact. There is no evidence of cerebral edema. IMPRESSION: NEGATIVE HEAD CT SCAN.
[2019-09-11] MEDS ORDERED: NALOXONE 0.4 MG/ML 1 ML VIAL IV PRN (20:53)
[2019-09-11] MEDS ORDERED: METOCLOPRAMIDE 5 MG/ML 2 ML VIAL IVP PRN (20:55)
[2019-09-11 22:35] VITALS: BMI 38.0
[2019-09-11] MEDS: SODIUM CHLORIDE 0.9% 1,000 ML IV SCH (22:46)
[2019-09-12 01:47] LABS: Appearance,Urine Clear (Clear); Bilirubin,Urine Negative (Negative); Blood,Urine Negative (Negative); Color,Urine Yellow; Glucose,Urine (UA) Negative (Negative); Ketones,Urine Negative (Negative); Leukocyte Esterase,Urine Negative (Negative); Nitrite,Urine Negative (Negative); Protein,Urine Negative (Negative); Specific Gravity,Urine 1.014 (1.001-1.035); Urobilinogen,Urine <2.0 mg/dL (<2.0)
[2019-09-12] MEDS: MECLIZINE 25 MG TAB PO PRN (07:55)
[2019-09-12] MEDS: SODIUM CHLORIDE 0.9% 1,000 ML IV SCH ×3 (07:55→20:55)
[2019-09-12] MEDS: ENOXAPARIN 120 MG/0.8 ML SYRINGE SQ SCH ×2 (11:03→20:54)
[2019-09-12] MEDS: CITALOPRAM HYDROBROMIDE 20 MG TAB PO SCH (11:03)
--- NOTE | 2019-09-12 14:26 | P.CNNES ---
History of Present Illness Consult date: 09/12/19 History of Present Illness: Mr. Nima Francis is a very pleasant 53-year-old male who was seen in neurologic consultation on 09/12/2019. The patient is seen because of dizziness. He reports having a cough for approximately one week. With that cough he has been experiencing lightheadedness as well. He denies fever. He reports that the cough has been productive of very green/brown sputum. Yesterday patient was feeling well enough to go to a show in [place], with his son. Following the shoulder he apparently ate at [employer], at about 1:30 PM. Later in the afternoon the patient began to experience nausea and vomiting. He reportedly vomited twice at home. He then vomited twice in the emergency department. He reports feeling very lightheaded and dizzy. He denies abdominal pain and diarrhea. The patient denies numbness tingling weakness in his extremities he does reported a generalized weak feeling. He denies tinnitus and hearing loss. He denies any history of similar symptoms. He does not report an actual vertiginous sensation. He denies difficulty rolling over in bed. He does note when he sits up this morning, he becomes lightheaded. He also becomes lightheaded when he is up and walking. He notices that when he looks at an o bject, it seems to rotate to the right. It then reorients. The patient denies headaches. The patient denies changes in vision and double vision. Mr. Francis has a history of DVT, PE and stage III bile duct cancer. He reports having gone through 8 cycles of chemotherapy and 15 doses of radiation. The radiation was completed in June of this year. Review of Systems Eyes: denies blurred vision, denies pain Ears: deny: decreased hearing, tinnitus Respiratory: Reports as per HPI Gastrointestinal: Reports as per HPI Musculoskeletal: Reports as per HPI Past Medical History Past Medical History: Deep Vein Thrombosis (DVT), Pulmonary Embolus (PE) Additional Past Medical History / Comment(s): stage 3 bile duct cancer , large pe in right, small pe multiple in left, left leg dvt, finished chemo and radiation sept. getting next scan dec to see if in remission, bronchitis History of Any Multi-Drug Resistant Organisms: None Reported Past Surgical History: Tonsillectomy Additional Past Surgical History / Comment(s): shattered left arm surgery to correct, Past Anesthesia/Blood Transfusion Reactions: No Reported Reaction Past Psychological History: Bipolar, Depression Smoking Status: Never smoker Past Alcohol Use History: None Reported Past Drug Use History: None Reported - Past Family History family Additional Family Medical History / Comment(s): denies history of blood clots in the family Medications and Allergies Home Medications Medication Instructions Recorded Confirmed Type Citalopram Hydrobromide [CeleXA] 40 mg PO DAILY 06/12/19 09/11/19 History Enoxaparin [Lovenox] 120 mg SQ Q12H #14 syringe 06/12/19 09/11/19 Rx lamoTRIgine [LaMICtal] 100 mg PO DAILY 06/12/19 09/11/19 History Acetaminophen/Diphenhydramine 1 tab PO HS 09/11/19 09/11/19 History [Tylenol PM 500-25mg] Allergies Allergy/AdvReac Type Severity Reaction Status Date / Time ketamine Allergy Hallucinati Verified 09/11/19 21:31 ons Penicillins Allergy Anaphylaxis Verified 09/11/19 21:31 Physical Examination - Vital Signs Vital Signs: Vital Signs Temp Pulse Pulse Pulse Pulse Pulse Resp 09/12/19 11:40 97.6 F 76 17 09/12/19 08:15 98.1 F 74 17 09/11/19 23:11 85 91 69 09/11/19 22:16 97.7 F 66 16 09/11/19 19:53 72 19 09/11/19 18:14 97.9 F 74 18 BP BP BP BP BP Pulse Ox 09/12/19 11:40 143/81 96 09/12/19 08:15 134/78 94 L 09/11/19 23:11 143/86 131/84 131/77 09/11/19 22:16 110/64 95 09/11/19 19:53 137/72 98 09/11/19 18:14 134/73 97 Intake and Output 09/11/19 09/12/19 09/12/19 22:59 06:59 14:59 Intake Total 900 Output Total 750 Balance -750 900 Intake: Intake, IV Titration 900 Amount Sodium Chloride 0.9% 1, 900 000 ml @ 100 mls/hr IV . Q10H [facility] Rx#:[id number] Output: Urine 750 Other: Voiding Method Toilet Toilet Urinal # Voids 2 Weight 120.202 kg 124.5 kg - Constitutional General appearance: average body habitus, cooperative - EENT EENT: PERRL, mucous membranes moist - Respiratory Respiratory: rhonchi - Cardiovascular Cardiovascular: regular rate - Neurologic Mental status: The patient is awake, alert and oriented 3. His speech is clear. Cranial nerves: Pupils are equal, round and reactive to light. Fundus poorly visualized. Visual rosen are full to confrontation. Extraocular muscles are intact. There is nystagmus on right lateral gaze. Facial sensation is intact. There is no facial asymmetry. Hearing is grossly intact. Uvula and palate are midline. Shoulder shrug is symmetric. Tongue protrudes midline. Motor: Strength is 5/5 throughout. Sensation: Intact to light touch temperature and vibration. Coordination: Intact. There is no dysmetria, dysdiadochokinesia or ataxia. [id number]-oooh-[id number] testing and gqok-rv-[id number] testing are well performed. Deep tendon reflexes: 2+/4+ throughout. Plantar responses are flexor bilaterally. Gait: Not assessed. Results - Laboratory Findings CBC and BMP: 09/11/19 18:20 09/11/19 18:20 Abnormal Lab Findings: Abnormal Labs 09/11/19 09/11/19 18:20 18:20 WBC 3.2 L RBC 3.79 L Hgb 11.9 L Hct 35.0 L Plt Count 91 L Lymphocytes # 0.4 L Chloride 111 H Carbon Dioxide 21 L Glucose 102 H Assessment and Plan Assessment: Impressions:1) dizziness, nausea and vomiting with evidence of nystagmus on neurologic examination. Due to the patient's hypercoagulable state and history of DVT as well as PE I believe it is important to rule out a right cerebellar infarct 2) it is also important to rule out the possibility of brain metastases in light of the patient's cancer Recommendations: 1) MRI of the brain with and without gadolinium has been ordered. We will await those results Thank you for lying me to produce pain currently this patient. (1) Dizziness Current Visit: Yes Status: Acute Code(s): R42 - DIZZINESS AND GIDDINESS SNOMED Code(s): 442424072 (2) Vertigo Current Visit: Yes Status: Acute Code(s): R42 - DIZZINESS AND GIDDINESS SNOMED Code(s): 186695060 Plan: 1) MRI of the brain with and without gadolinium Time with Patient: Greater than 30
--- NOTE | 2019-09-12 14:50 | P.HPIM ---
History of Present Illness H&P Date: 09/12/19 53-year-old male who was seen in neurologic consultation on 09/12/2019. The patient is seen because of dizziness. He reports having a cough for approximately one week. With that cough he has been experiencing lightheadedness as well. He denies fever. He reports that the cough has been productive of very green/brown sputum. Yesterday patient was feeling well enough to go to a show in [place], with his son. Following the shoulder he apparently ate at [employer], at about 1:30 PM. Later in the afternoon the patient began to experience nausea and vomiting. He reportedly vomited twice at home. He then vomited twice in the emergency department. He reports feeling very lightheaded and dizzy. He denies abdominal pain and diarrhea. The patient denies numbness tingling weakness in his extremities he does reported a generalized weak feeling. He denies tinnitus and hearing loss. He denies any history of similar symptoms. He does not report an actual vertiginous sensation. He denies difficulty rolling over in bed. He does note when he sits up this morning, he becomes lightheaded. He also becomes lightheaded when he is up and walking. He notices that when he looks at an object, it seems to rotate to the right. It then reorients. The patient denies headaches. The patient denies changes in vision and double vision. 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 HEENT: No recent visual problems or hearing problems. Denied any sore throat. CARDIOVASCULAR: No chest pain, orthopnea, PND, no palpitations, no syncope. PULMONARY: No shortness of breath, no cough, no hemoptysis. GASTROINTESTINAL: No diarrhea, no nausea, no vomiting, no abdominal pain. NEUROLOGICAL: No headaches, no weakness, no numbness. HEMATOLOGICAL: Denies any bleeding or petechiae. GENITOURINARY: Denies any burning micturition, frequency, or urgency. MUSCULOSKELETAL/RHEUMATOLOGICAL: Denies any joint pain, swelling, or any muscle pain. ENDOCRINE: Denies any polyuria or polydipsia. The rest of the 14-point review of systems is negative. 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 getting next scan dec to see if in remission, bronchitis History of Any Multi-Drug Resistant Organisms: None Reported Past Surgical History: Tonsillectomy Additional Past Surgical History / Comment(s): shattered left arm surgery to correct, Past Anesthesia/Blood Transfusion Reactions: No Reported Reaction Past Psychological History: Bipolar, Depression Smoking Status: Never smoker Past Alcohol Use History: None Reported Past Drug Use History: None Reported - Past Family History family Additional Family Medical History / Comment(s): denies history of blood clots in the family Medications and Allergies Home Medications Medication Instructions Recorded Confirmed Type Citalopram Hydrobromide [CeleXA] 40 mg PO DAILY 06/12/19 09/11/19 History Enoxaparin [Lovenox] 120 mg SQ Q12H #14 syringe 06/12/19 09/11/19 Rx lamoTRIgine [LaMICtal] 100 mg PO DAILY 06/12/19 09/11/19 History Acetaminophen/Diphenhydramine 1 tab PO HS 09/11/19 09/11/19 History [Tylenol PM 500-25mg] Allergies Allergy/AdvReac Type Severity Reaction Status Date / Time ketamine Allergy Hallucinati Verified 09/11/19 21:31 ons Penicillins Allergy Anaphylaxis Verified 09/11/19 21:31 Physical Exam Vitals: Vital Signs Temp Pulse Pulse Pulse Pulse Pulse Resp 09/12/19 08:15 98.1 F 74 17 09/11/19 23:11 85 91 69 09/11/19 22:16 97.7 F 66 16 09/11/19 19:53 72 19 09/11/19 18:14 97.9 F 74 18 BP BP BP BP BP Pulse Ox 09/12/19 08:15 134/78 94 L 09/11/19 23:11 143/86 131/84 131/77 09/11/19 22:16 110/64 95 09/11/19 19:53 137/72 98 09/11/19 18:14 134/73 97 Intake and Output 09/11/19 09/12/19 09/12/19 22:59 06:59 14:59 Intake Total 900 Output Total 750 Balance -750 900 Intake: Intake, IV Titration 900 Amount Sodium Chloride 0.9% 1, 900 000 ml @ 100 mls/hr IV . Q10H [facility] Rx#:[id number] Output: Urine 750 Other: Voiding Method Toilet Toilet Urinal # Voids 2 Weight 120.202 kg 124.5 kg PHYSICAL EXAMINATION: GENERAL: The patient is alert and oriented x3, not in any acute distress. Well developed, well nourished. HEENT: Pupils are round and equally reacting to light. EOMI. No scleral icterus. No conjunctival pallor. Normocephalic, atraumatic. No pharyngeal erythema. No thyromegaly. CARDIOVASCULAR: S1 and S2 present. No murmurs, rubs, or gallops. PULMONARY: Chest is clear to auscultation, no wheezing or crackles. ABDOMEN: Soft, nontender, nondistended, normoactive bowel sounds. No palpable organomegaly. MUSCULOSKELETAL: No joint swelling or deformity. EXTREMITIES: No cyanosis, clubbing, or pedal edema. NEUROLOGICAL: Gross neurological examination did not reveal any focal deficits. SKIN: No rashes. Results CBC & Chem 7: 09/11/19 18:20 09/11/19 18:20 Labs: Abnormal Lab Results - Last 24 Hours (Table) 09/11/19 09/11/19 Range/Units 18:20 18:20 WBC 3.2 L (3.8-10.6) k/uL RBC 3.79 L (4.30-5.90) m/uL Hgb 11.9 L (13.0-17.5) gm/dL Hct 35.0 L (39.0-53.0) % Plt Count 91 L (150-450) k/uL Lymphocytes # 0.4 L (1.0-4.8) k/uL Chloride 111 H (98-107) mmol/L Carbon Dioxide 21 L (22-30) mmol/L Glucose 102 H (74-99) mg/dL Thrombosis Risk Factor Assmnt - Choose All That Apply Any of the Below Risk Factors Present?: Yes Each Factor Represents 1 point: Age 41-60 years, Obesity (BMI >25) Other Risk Factors: Yes Each Risk Factor Represents 2 Points: Malignancy Each Risk Factor Represents 3 Points: History of DVT/PE Other congenital or acquired thrombophilia - If yes, enter type in comment: No Thrombosis Risk Factor Assessment Total Risk Factor Score: 7 Thrombosis Risk Factor Assessment Level: High Risk Assessment and Plan Assessment: 1. Nausea, vomiting/dizziness - Patient did have evidence of nystagmus on neurological exam; neurology is following and recommending MRI of the brain to rule out cerebral infarct in view of patient's history of hypercoagulable state with DVT and PE; also important to rule out possibility of brain metastasis from bile duct CA - MRI is ordered and pending 2. Severe purulent tracheobronchitis - We will start patient on doxycycline 100 mg IV every 12 hours; DuoNeb nebulize r treatments 4 times a day and when necessary; Solu-Medrol 40 mg IV every 8 hours; O2 per nasal cannula when necessary to keep SpO2 greater than 92% 3. Hypercoagulable state; DVT/PE - Continue with Lovenox 120 mg subcu every 12 hours 4. Depression; Celexa 40 mg daily DVT prophylaxis; systemic anticoagulation with Lovenox CODE STATUS; full code Time with Patient: Greater than 30
[2019-09-12] MEDS: IPRATROPIUM-ALBUTEROL 3 ML NEB INHALATION PRN ×2 (16:19→20:22)
[2019-09-12] MEDS: DOXYCYCLINE 100 MG in SODIUM CHLORIDE 0.9% 100 ML IVPB SCH ×2 (16:56→20:54)
[2019-09-12] MEDS: methylPREDNISolone SOD SUCCI 40 MG/ML 1 ML VIAL IV SCH (16:56)
[2019-09-13] MEDS: methylPREDNISolone SOD SUCCI 40 MG/ML 1 ML VIAL IV SCH ×4 (00:03→23:46)
[2019-09-13] MEDS: IPRATROPIUM-ALBUTEROL 3 ML NEB INHALATION PRN (00:15)
[2019-09-13 06:50] LABS: African American GFR (CKD) >90 (>60 ml/min/1.73 sqM); Anion Gap 9 mmol/L; Blood Urea Nitrogen 9 mg/dL (9-20); Calcium 8.7 mg/dL (8.4-10.2); Carbon Dioxide 20 mmol/L (22-30); Chloride 112 mmol/L (98-107); Glucose 141 mg/dL (74-99); Non-African American GFR(CKD) >90 (>60 ml/min/1.73 sqM); Potassium 4.1 mmol/L (3.5-5.1); Sodium 141 mmol/L (137-145)
[2019-09-13 06:54] LABS: Basophils % (A) 0 %; Eosinophils % (A) 0 %; HCT 35.8 % (39.0-53.0); HGB 11.7 gm/dL (13.0-17.5); Lymphocytes # (A) 0.3 k/uL (1.0-4.8); Lymphocytes % (A) 7 %; MCHC 32.7 g/dL (31.0-37.0); MCV 94.6 fL (80.0-100.0); Mean Platelet Volume 7.5; Monocytes # (A) 0.1 k/uL (0-1.0); Monocytes % (A) 3 %; Neutrophils # (A) 3.6 k/uL (1.3-7.7); Neutrophils % (A) 89 %; RBC 3.78 m/uL (4.30-5.90); RDW 14.7 % (11.5-15.5)
[2019-09-13 07:05] LABS: Platelet Count 99 k/uL (150-450)
[2019-09-13] MEDS: IPRATROPIUM-ALBUTEROL 3 ML NEB INHALATION SCH ×4 (07:57→20:47)
[2019-09-13] MEDS: ENOXAPARIN 120 MG/0.8 ML SYRINGE SQ SCH ×2 (08:22→20:11)
[2019-09-13] MEDS: CITALOPRAM HYDROBROMIDE 20 MG TAB PO SCH (08:22)
[2019-09-13] MEDS: DOXYCYCLINE 100 MG in SODIUM CHLORIDE 0.9% 100 ML IVPB SCH ×3 (08:23→20:10)
[2019-09-13] MEDS: SODIUM CHLORIDE 0.9% 1,000 ML IV SCH ×2 (08:29→16:08)
[2019-09-13] MEDS: MECLIZINE 25 MG TAB PO PRN (09:19)
--- NOTE | 2019-09-13 15:14 | P.PN ---
Subjective Progress Note Date: 09/13/19 Principal diagnosis: Acute onset dizziness rule out posterior CVA Acute purulent tracheobronchitis 09/13/2019 Patient is seen and evaluated in room; reports improvement in breathing but continues to feel dizzy and walking to the bathroom Vital signs remained stable with a temperature of 97.9, pulse 88, respirations 17 and blood pressure 150/79 SpO2 of 97% on room air Labs are reviewed WBC 4.0, hemoglobin 11.7 and platelet count of 99 ; sodium 141 with potassium of 4.1; Patient remains on IV doxycycline and DuoNeb nebulizer treatments with Solu-Medr ol every 12 hours for another 24 hours; may be switched to oral medications in next 24 hours if remains stable Neurology has seen patient and has recommended further work workup with an MRI to rule out cerebellar infarct versus brain metastasis from stage III bile duct cancer; MRI is pending Objective - Vital Signs Vital signs: Vital Signs Temp 97.9 F 09/13/19 11:36 Pulse 76 09/13/19 12:03 Resp 17 09/13/19 11:36 BP 150/79 09/13/19 11:36 Pulse Ox 97 09/13/19 11:36 Intake & Output 09/12/19 09/13/19 09/13/19 18:59 06:59 18:59 Intake Total 800 900 Balance 800 900 Intake: Intake, IV Titration 800 900 Amount Doxycycline 100 mg In 100 Sodium Chloride 0.9% 100 ml @ 100 mls/hr IVPB Q12HR [facility] Rx#:[id number] Sodium Chloride 0.9% 1, 800 800 000 ml @ 100 mls/hr IV . Q10H [facility] Rx#:[id number] Other: Voiding Method Toilet Toilet Toilet Urinal Urinal Urinal - Exam GENERAL: The patient is alert and oriented x3, not in any acute distress. Well developed, well nourished. HEENT: Pupils are round and equally reacting to light. EOMI. No scleral icterus. No conjunctival pallor. Normocephalic, atraumatic. No pharyngeal erythema. No thyromegaly. CARDIOVASCULAR: S1 and S2 present. No murmurs, rubs, or gallops. PULMONARY: Chest is clear to auscultation, no wheezing or crackles. ABDOMEN: Soft, nontender, nondistended, normoactive bowel sounds. No palpable organomegaly. MUSCULOSKELETAL: No joint swelling or deformity. EXTREMITIES: No cyanosis, clubbing, or pedal edema. NEUROLOGICAL: Gross neurological examination did not reveal any focal deficits. SKIN: No rashes. - Labs CBC & Chem 7: 09/13/19 06:04 09/13/19 06:04 Labs: Abnormal Lab Results - Last 24 Hours (Table) 09/13/19 09/13/19 Range/Units 06:04 06:04 RBC 3.78 L (4.30-5.90) m/uL Hgb 11.7 L (13.0-17.5) gm/dL Hct 35.8 L (39.0-53.0) % Plt Count 99 L (150-450) k/uL Lymphocytes # 0.3 L (1.0-4.8) k/uL Chloride 112 H (98-107) mmol/L Carbon Dioxide 20 L (22-30) mmol/L Glucose 141 H (74-99) mg/dL Assessment and Plan Assessment: 1. Nausea, vomiting/dizziness - Patient did have evidence of nystagmus on neurological exam; neurology is following and recommending MRI of the brain to rule out cerebral infarct in view of patient's history of hypercoagulable state with DVT and PE; also important to rule out possibility of brain metastasis from bile duct CA - MRI is ordered and pending 2. Severe purulent tracheobronchitis - We will start patient on doxycycline 100 mg IV every 12 hours; DuoNeb nebulizer treatments 4 times a day and when necessary; Solu-Medrol 40 mg IV every 8 hours; O2 per nasal cannula when necessary to keep SpO2 greater than 92% 3. Hypercoagulable state; DVT/PE - Continue with Lovenox 120 mg subcu every 12 hours 4. Depression; Celexa 40 mg daily DVT prophylaxis; systemic anticoagulation with Lovenox CODE STATUS; full code Time with Patient: Less than 30
--- NOTE | 2019-09-13 15:46 | P.PN ---
Subjective Progress Note Date: 09/13/19 Mr. Nima Francis is seen in neurologic follow-up on 09/13/2019. He is reclining in the bed. He reports feeling somewhat better today. His cough is improved. He continues to have mild dizziness when he gets up to walk to the bathroom. MRI of the brain was not done yesterday because of question regarding bile duct stent and its MRI compatibility. Objective - Vital Signs Vital signs: Vital Signs Temp 97.9 F 09/13/19 11:36 Pulse 84 09/13/19 12:16 Resp 17 09/13/19 11:36 BP 150/79 09/13/19 11:36 Pulse Ox 97 09/13/19 11:36 Intake & Output 09/12/19 09/13/19 09/13/19 18:59 06:59 18:59 Intake Total 800 900 Balance 800 900 Intake: Intake, IV Titration 800 900 Amount Doxycycline 100 mg In 100 Sodium Chloride 0.9% 100 ml @ 100 mls/hr IVPB Q12HR [facility] Rx#:[id number] Sodium Chloride 0.9% 1, 800 800 000 ml @ 100 mls/hr IV . Q10H [facility] Rx#:[id number] Other: Voiding Method Toilet Toilet Toilet Urinal Urinal Urinal - Exam General: Patient is reclining in the bed. He is well-nourished, well-developed and in no acute distress HEENT: Head is atraumatic, normocephalic. Fundus not visualized. There is no scleral icterus. Neurological examination Mental status: Patient is awake, alert and oriented 3. His speech is clear. Cranial nerves: Pupils are equal, round and reactive to light. Visual rosen are full to confrontation. Extraocular muscles are intact. There continues to be mild bemild nystagmus on right lateral gaze. There is no facial asymmetry. Coordination: Finger to nose testing and [id number] testing are intact. - Labs CBC & Chem 7: 09/13/19 06:04 09/13/19 06:04 Labs: Abnormal Lab Results - Last 24 Hours (Table) 09/13/19 09/13/19 Range/Units 06:04 06:04 RBC 3.78 L (4.30-5.90) m/uL Hgb 11.7 L (13.0-17.5) gm/dL Hct 35.8 L (39.0-53.0) % Plt Count 99 L (150-450) k/uL Lymphocytes # 0.3 L (1.0-4.8) k/uL Chloride 112 H (98-107) mmol/L Carbon Dioxide 20 L (22-30) mmol/L Glucose 141 H (74-99) mg/dL Assessment and Plan Assessment: Impressions:1) dizziness, nausea and vomiting with evidence of nystagmus on neurologic examination. Due to the patient's hypercoagulable state and history of DVT as well as PE I believe it is important to rule out a right cerebellar infarct 2) it is also important to rule out the possibility of brain metastases in light of the patient's cancer (1) Dizziness Current Visit: Yes Status: Acute Code(s): R42 - DIZZINESS AND GIDDINESS SNOMED Code(s): 378825895 (2) Vertigo Current Visit: Yes Status: Acute Code(s): R42 - DIZZINESS AND GIDDINESS SNOMED Code(s): 562853939 Plan: 1) MRI of the brain with and without gadolinium 2) Await clearance from [facility] regarding MRI compatibility of bile duct stent 3) Dr. Nails will assume neurologic coverage of this patient Time with Patient: Less than 30 (20 minutes spent with pt)
[2019-09-14] MEDS: SODIUM CHLORIDE 0.9% 1,000 ML IV SCH ×2 (04:03→21:48)
[2019-09-14 07:25] LABS: Basophils % (A) 0 %; Eosinophils % (A) 0 %; HCT 37.3 % (39.0-53.0); HGB 12.2 gm/dL (13.0-17.5); Lymphocytes # (A) 0.4 k/uL (1.0-4.8); Lymphocytes % (A) 6 %; MCHC 32.7 g/dL (31.0-37.0); MCV 94.9 fL (80.0-100.0); Mean Platelet Volume 7.4; Monocytes # (A) 0.2 k/uL (0-1.0); Monocytes % (A) 4 %; Neutrophils # (A) 5.1 k/uL (1.3-7.7); Neutrophils % (A) 89 %; RBC 3.93 m/uL (4.30-5.90); RDW 14.8 % (11.5-15.5); WBC 5.7 k/uL (3.8-10.6)
[2019-09-14 07:34] LABS: African American GFR (CKD) >90 (>60 ml/min/1.73 sqM); Anion Gap 7 mmol/L; Blood Urea Nitrogen 11 mg/dL (9-20); Calcium 8.9 mg/dL (8.4-10.2); Carbon Dioxide 23 mmol/L (22-30); Chloride 112 mmol/L (98-107); Glucose 136 mg/dL (74-99); Non-African American GFR(CKD) >90 (>60 ml/min/1.73 sqM); Potassium 4.6 mmol/L (3.5-5.1); Sodium 142 mmol/L (137-145)
[2019-09-14 07:38] LABS: Platelet Count 90 k/uL (150-450)
[2019-09-14] MEDS: IPRATROPIUM-ALBUTEROL 3 ML NEB INHALATION SCH ×4 (08:15→20:08)
[2019-09-14] MEDS: DOXYCYCLINE 100 MG in SODIUM CHLORIDE 0.9% 100 ML IVPB SCH ×2 (08:52→20:14)
[2019-09-14] MEDS: CITALOPRAM HYDROBROMIDE 20 MG TAB PO SCH (08:53)
[2019-09-14] MEDS: methylPREDNISolone SOD SUCCI 40 MG/ML 1 ML VIAL IV SCH (08:53)
[2019-09-14] MEDS: ENOXAPARIN 120 MG/0.8 ML SYRINGE SQ SCH ×2 (08:54→20:14)
[2019-09-14] MEDS: MECLIZINE 25 MG TAB PO PRN (08:55)
--- NOTE | 2019-09-14 10:43 | P.PN ---
Subjective This is a pleasant 53 years old male with past medical history of DVT/PE on Lovenox, on 01/2019 he was diagnosed with bile duct cancer and he sees oncologist at [facility], is a status post bile duct stent, he got his chemo and radiotherapy. He presents this time with dizziness like the room spinning around his head, I.e. vertigo, however his vertigo significantly improved as this morning his stent its 1000 times better however it is not completely resolved, no nausea vomiting, no some vomited his about 2-3 days ago. On admission also have respiratory symptoms suspicious for acute bronchitis which is significantly improved. Given today he worked with physical therapy without exertional dyspnea. He going to switch his IV steroids to prednisone decrease IV fluids to 50 ml/hr Objective - Vital Signs Vital signs: Vital Signs Temp 97.7 F 09/14/19 05:00 Pulse 80 09/14/19 08:27 Resp 16 09/14/19 05:00 BP 165/73 09/14/19 05:00 Pulse Ox 96 09/14/19 05:00 Intake & Output 09/13/19 09/14/19 09/14/19 18:59 06:59 18:59 Intake Total 900 3110 Balance 900 3110 Intake: Intake, IV Titration 900 1200 Amount Doxycycline 100 mg In 100 100 Sodium Chloride 0.9% 100 ml @ 100 mls/hr IVPB Q12HR [facility] Rx#:[id number] Sodium Chloride 0.9% 1, 800 1100 000 ml @ 100 mls/hr IV . Q10H [facility] Rx#:[id number] Oral 1910 Other: Voiding Method Toilet Toilet Urinal Urinal # Voids 2 - Exam GENERAL: The patient is alert and oriented x3, not in any acute distress. Well developed, well nourished. HEENT: Pupils are round and equally reacting to light. EOMI. No scleral icterus. No conjunctival pallor. Normocephalic, atraumatic. No pharyngeal erythema. No thyromegaly. CARDIOVASCULAR: S1 and S2 present. No murmurs, rubs, or gallops. PULMONARY: Chest is clear to auscultation, no wheezing or crackles. ABDOMEN: Soft, nontender, nondistended, normoactive bowel sounds. No palpable organomegaly. MUSCULOSKELETAL: No joint swelling or deformity. EXTREMITIES: No cyanosis, clubbing, or pedal edema. NEUROLOGICAL: Gross neurological examination did not reveal any focal deficits. SKIN: No rashes. no petechiae. - Labs CBC & Chem 7: 09/14/19 06:39 09/14/19 06:39 Labs: Abnormal Lab Results - Last 24 Hours (Table) 09/14/19 09/14/19 Range/Units 06:39 06:39 RBC 3.93 L (4.30-5.90) m/uL Hgb 12.2 L (13.0-17.5) gm/dL Hct 37.3 L (39.0-53.0) % Plt Count 90 L (150-450) k/uL Lymphocytes # 0.4 L (1.0-4.8) k/uL Chloride 112 H (98-107) mmol/L Glucose 136 H (74-99) mg/dL Assessment and Plan Assessment: Acute vertigo, improving Acute tracheobronchitis, improving Hypercoagulable state with history of DVT/PE on Lovenox History of depression, not an active issue Plan: This is a pleasant 53 years old male who presents with dizziness/vertigo and ac cocopah tracheobronchitis. Switches steroids to oral prednisone. Continue with antibiotics. Neurologist recommended MRI of the brain with and without contrast, pending records about his biliary stent LabsLovenox and medication were reviewed.. Continue same treatment. Continue with symptomatic treatment. Resume home medication. Monitor lytes and vitals. DVT and GI prophylaxis. Further recommendations of the clinical course of the patient DVT prophylaxis: Subcutaneous heparin GI Prophylaxis: Pepcid PT/OT: Pending
--- NOTE | 2019-09-14 12:18 | P.PN ---
Subjective Progress Note Date: 09/14/19 Patient is a 53-year-old male, who developed acute onset of dizziness lightheadedness nausea vomiting since 09/11/2019. Patient also has been suffering from bronchitis for the last 2 weeks, with brownish phlegm.. Patient states that he would get dizzy on coughing, but got worse on Saturday as ment ioned. He never had such episodes before. Denies any vertigo. Denies fever, abdominal pain. Patient has been started on antibiotics and his symptoms have much improved. At present he feels is mild dizziness but denies any vertigo. No nausea vomiting or any focal symptoms. Patient has history of stage III bile duct cancer, when he presented with progressive jaundice of few weeks' duration. He underwent chemotherapy and radiation that was completed in June. 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 Patient was supposed to be on Pradaxa twice a day, but he was noncompliant was taking it only once a day and ended up with another big clot in the right leg. Currently he is on Lovenox subcutaneous, full anticoagulant dose. Patient has history of tobacco use of 15 pack years, quit 16 years ago. Denies any alcohol. Objective - Vital Signs Vital signs: Vital Signs Temp 97.7 F 09/14/19 05:00 Pulse 88 09/14/19 11:53 Resp 16 09/14/19 05:00 BP 165/73 09/14/19 05:00 Pulse Ox 96 09/14/19 05:00 Intake & Output 09/13/19 09/14/19 09/14/19 18:59 06:59 18:59 Intake Total 900 3110 Balance 900 3110 Intake: Intake, IV Titration 900 1200 Amount Doxycycline 100 mg In 100 100 Sodium Chloride 0.9% 100 ml @ 100 mls/hr IVPB Q12HR [facility] Rx#:[id number] Sodium Chloride 0.9% 1, 800 1100 000 ml @ 100 mls/hr IV . Q10H [facility] Rx#:[id number] Oral 1910 Other: Voiding Method Toilet Toilet Urinal Urinal # Voids 2 - Exam Patient's mental status, speech language functions are normal. Cranial nerves are only significant for rotatory nystagmus looking to the right. No ataxia for [id number] testing. Muscle strength normal. No pronator drift. Tone and bulk of muscles normal. - Labs CBC & Chem 7: 09/14/19 06:39 09/14/19 06:39 Labs: Abnormal Lab Results - Last 24 Hours (Table) 09/14/19 09/14/19 Range/Units 06:39 06:39 RBC 3.93 L (4.30-5.90) m/uL Hgb 12.2 L (13.0-17.5) gm/dL Hct 37.3 L (39.0-53.0) % Plt Count 90 L (150-450) k/uL Lymphocytes # 0.4 L (1.0-4.8) k/uL Chloride 112 H (98-107) mmol/L Glucose 136 H (74-99) mg/dL Assessment and Plan Assessment: * Acute onset of dizziness, nausea vomiting with nystagmus on looking to the right. Patient also has acute tracheobronchitis. Symptoms suggestive of possible labyrinthitis. Metastasis is unlikely with normal computed tomograp hy scan of head. Likewise CVA is also less likely with lack of any ataxia or other focal symptoms. * History of bile duct cancer, status post chemo and radiation completed June 2019. * Recurrent DVT Plan: * Patient scheduled for MRI of the brain, once gets clearance from his bile duct stent standpoint. He had bile duct stent [facility] at [facility]. * Patient will be clear for discharge if the MRI comes back negative. * Continue anticoagulation for recurrent DVT as per IM.
[2019-09-14] MEDS: predniSONE 20 MG TAB PO SCH (12:58)
[2019-09-14] MEDS: FAMOTIDINE 20 MG TAB PO SCH ×3 (12:59→21:28)
--- NOTE | 2019-09-14 19:01 | MR ---
PRE AND POSTCONTRAST ENHANCED MRI OF THE BRAIN: CLINICAL HISTORY: possible stroke vs brain metastasis CONTRAST: Gadavist 13ml Multiplanar and multispin-echo imaging of the brain was performed both before and after the administr ation of contrast. The ventricles, basal cisterns and sulci overlying the cerebral convexities are within normal limits for the patient's age. There is no evidence for midline shift or mass effect. Acute intracranial hemorrhage or extra-axial collection is not evident. There are no abnormal areas of increased or decreased signal intensity within the brain parenchyma. Following contrast administration, there is no evidence for pathologic enhancement or enhancing mass. The mastoid air cells are well-aerated. Chronic paranasal sinusitis. IMPRESSION: No evidence for acute intracranial process. No evidence for metastatic lesion. Chronic paranasal sinu sitis.
[2019-09-15] MEDS: IPRATROPIUM-ALBUTEROL 3 ML NEB INHALATION SCH ×2 (08:22→11:49)
[2019-09-15] MEDS: DOXYCYCLINE 100 MG in SODIUM CHLORIDE 0.9% 100 ML IVPB SCH (10:07)
[2019-09-15] MEDS: CITALOPRAM HYDROBROMIDE 20 MG TAB PO SCH (10:20)
[2019-09-15] MEDS: FAMOTIDINE 20 MG TAB PO SCH (10:21)
[2019-09-15] MEDS: ENOXAPARIN 120 MG/0.8 ML SYRINGE SQ SCH (10:21)
[2019-09-15] MEDS: predniSONE 20 MG TAB PO SCH (10:21)
--- NOTE | 2019-09-15 10:28 | P.DS ---
Providers Date of admission: 09/13/19 08:56 Attending physician: Bridget Miramontes Consults: 09/11/19 20:54 Consult Physician Routine Consulting Provider: Janine Peter Consult Reason/Comments: dizziness, vertigo Do you want consulting provider notified?: Yes Primary care physician: Stated None Hospital Course: Diagnoses: Acute vertigo, improving. 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 He presents this time with dizziness like the room spinning around his head, I.e. vertigo, however his vertigo significantly improved as this morning by 95% as per patient description. She had nausea vomiting on pre sentation which is resolved as well now. Neurologist evaluated the patient and recommended MRI of the brain showed no acute intracranial process with no metastatic lesion. Patient has been evaluated by neurologist and cleared her for discharge as long as his MRI came back negative his breathing also significantly improved and from yesterday is wished and steroids and antibiotics and to oral form. Patient will be discharged on short course of doxycycline and tapered prednisone Patient is back close to his baseline with no other new complaint. Patient denies chest pain or dyspnea or abdominal pain. No nausea vomiting, hysterectomy and I 12. Physical therapy evaluated the patient and recommended home health care. Problems and management plan were discussed with the patient and he verbalized understanding and acceptance Patient was found stable and can be discharged home however he needs follow-up as an outpatient. Patient was instructed to follow up with PCP within one week and patient agrees. Patient also was instructed to follow up with the neurologist in 1-2 weeks and he agrees. Patient says he wants to make his on appointments Gen: patient is a AAOx3, no distress CVS: S1-S2, RRR, no murmur Lungs: B/L CTA, no wheezing Abdomen: soft, no distention, no tenderness, positive bowel sounds Extremity: no leg edema or induration Time spent more than 35 minutes Patient Condition at Discharge: Fair Plan - Discharge Summary Discharge Rx Participant: Yes New Discharge Prescriptions: No Action lamoTRIgine [LaMICtal] 100 mg PO DAILY Citalopram Hydrobromide [CeleXA] 40 mg PO DAILY Enoxaparin [Lovenox] 120 mg SQ Q12H #14 syringe Acetaminophen/Diphenhydramine [Tylenol PM 500-25mg] 1 tab PO HS Discharge Medication List Citalopram Hydrobromide [CeleXA] 40 mg PO DAILY 06/12/19 [History] Enoxaparin [Lovenox] 120 mg SQ Q12H #14 syringe 06/12/19 [Rx] lamoTRIgine [LaMICtal] 100 mg PO DAILY 06/12/19 [History] Acetaminophen/Diphenhydramine [Tylenol PM 500-25mg] 1 tab PO HS 09/11/19 [History] Follow up Appointment(s)/Referral(s): Lynn Mata MD [STAFF PHYSICIAN] - 1 Week (neurology ) None,Stated [Primary Care Provider] - 1-2 days Brooklyn Mata MD [STAFF PHYSICIAN] - 1 Week (neurology )
--- NOTE | 2019-09-15 11:36 | P.PN ---
Subjective Progress Note Date: 09/15/19 Patient is a 53-year-old male, who developed acute onset of dizziness lightheadedness nausea vomiting since 09/11/2019. Patient also has been suffering from bronchitis for the last 2 weeks, with brownish phlegm. Patient states that he would get dizzy on coughing, but got worse on Saturday as menti oned. He never had such episodes before. Denies any vertigo. Denies fever, abdominal pain. Patient has been started on antibiotics and his symptoms have much improved. At present he feels is mild dizziness but denies any vertigo. No nausea vomiting or any focal symptoms. Patient underwent MRI of the brain with and without contrast, which is normal. Patient states his dizziness is much improved, 95% gone. Patient has history of stage III bile duct cancer, when he presented with progressive jaundice of few weeks' duration. He underwent chemotherapy and radiation that was completed in June. 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 Patient was supposed to be on Pradaxa twice a day, but he was noncompliant was taking it only once a day and ended up with another big clot in the right leg. Currently he is on Lovenox subcutaneous, full anticoagulant dose. Patient has history of tobacco use of 15 pack years, quit 16 years ago. Denies any alcohol. Objective - Vital Signs Vital signs: Vital Signs Temp 97.7 F 09/15/19 07:45 Pulse 88 09/15/19 08:40 Resp 16 09/15/19 08:00 BP 155/104 09/15/19 07:45 Pulse Ox 96 09/15/19 07:45 Intake & Output 09/14/19 09/15/19 09/15/19 18:59 06:59 18:59 Intake Total 1900 1620 480 Output Total 750 Balance 1150 1620 480 Intake: Intake, IV Titration 600 200 Amount Doxycycline 100 mg In 100 Sodium Chloride 0.9% 100 ml @ 100 mls/hr IVPB Q12HR DIAMODN Rx#:[id number] Sodium Chloride 0.9% 1, 600 100 000 ml @ 50 mls/hr IV . Q20H DIAMOND Rx#:[id number] Oral 1300 1420 480 Output: Urine 750 Other: Voiding Method Toilet Toilet Toilet Urinal # Voids 5 1 - Exam Patient's mental status, speech language functions are normal. Cranial nerves are only significant for rotatory nystagmus looking to the right. This is improved as compared to yesterday. No ataxia for [id number] testing. Muscle strength normal. No pronator drift. Tone and bulk of muscles normal. - Labs CBC & Chem 7: 09/14/19 06:39 09/14/19 06:39 Assessment and Plan Assessment: * Acute onset of dizziness, nausea vomiting with nystagmus on looking to the right. Patient also has acute tracheobronchitis. Symptoms suggestive of possible labyrinthitis versus vestibular neuronitis. * History of bile duct cancer, status post chemo and radiation completed June 2019. * Recurrent DVT Plan: * MRI of the brain with and without contrast is normal. No evidence of metastatic disease or CVA. * Patient clear for discharge from neurology point. * Continue course of antibiotics per IM. * Continue anticoagulation for recurrent DVT as per IM.
[2019-09-15 11:43] VITALS: BP 133/71; RESP 18; TEMP 98.1
[2019-09-15 12:07] VITALS: PULSE 80
== END 2019-09-15 12:15 | disposition home health service (06) | DRG 149 ==
LOC: EC 18:09 → 3NMEDONC 20:42 → OBSVTOIN 09-13 08:56 → 3NMEDONC 09-13 19:05
PROVIDERS: ADMIT Internal Medicine; ATTEND Internal Medicine
DX: R42 Dizziness and giddiness (principal); D68.59 Other primary thrombophilia; J20.9 Acute bronchitis, unspecified; Z79.01 Long term (current) use of anticoagulants; Z79.899 Other long term (current) drug therapy; Z85.09 Personal history of malignant neoplasm of other digestive organs; Z86.711 Personal history of pulmonary embolism; Z86.718 Personal history of other venous thrombosis and embolism; Z87.891 Personal history of nicotine dependence; Z91.19 Patient's noncompliance with other medical treatment and regimen; Z92.21 Personal history of antineoplastic chemotherapy; Z92.3 Personal history of irradiation; Z88.0 Allergy status to penicillin; Z88.8 Allergy status to other drugs, medicaments and biological substances
CPT/HCPCS: 36415; 70450; 70553; 71046; 74018; 80048; 80053; 81003; 82150; 83690; 84484; 85025; 93005; 94640; 96374; 96375; 99285

== ENCOUNTER → 2020-04-08 | Outpatient (CLI) | payer OTHER ==
--- NOTE | 2020-04-11 08:27 | PE ---
EXAMINATION TYPE: PET CT fusion skull to thigh DATE OF EXAM: 04/08/2020 COMPARISON: No recent studies at this institution. Prior chest CT July 24, 2010. HISTORY: Hepatobiliary cancer initial staging study. Diagnosed October 03, 2018 completed chemother apy July 2019 and completed radiation treatment October 2019. TECHNIQUE: Following the intravenous administration of 11.95 mCi of F-18 FDG, whole body images are performed from the skull base to the midthigh. Images are reviewed on the computer in the coronal, a xial, and sagittal planes. Reconstructed rotating images are created on independent workstation and reviewed on the computer. A noncontrast CT is performed in conjunction with the PET scan. SCAN: Initial Scan FINDINGS: SKULL BASE AND NECK: No areas of suspicious hypermetabolic uptake. CHEST, MEDIASTINUM, AND HILAR REGION: There is new 10 x 8 mm right middle lobe nodule axial image 3 t hat is ametabolic. There is 2.4 x 1.5 cm prevascular hypermetabolic lymph node, max SUV is 5.13. Just superior to this t here is smaller 2.0 x 0.8 cm hypermetabolic prevascular lymph node, max SUV is 7.67. ABDOMEN AND PELVIS: There is plastic internal biliary drainage catheter without biliary dilatation. N o suspicious hypermetabolic uptake in the liver identified on current study. Normal excretion in the kidneys and bladder. At level of renal veins draining into IVC there are several adjacent hypermetabolic retroperitoneal l ymph nodes, largest measures 1.7 x 1.3 cm axial image 156, max SUV is 8.19. No additional areas of suspicious hypermetabolic uptake. OSSEOUS STRUCTURES: No areas of suspicious hypermetabolic uptake are present. OTHER CT: There is right internal jugular Mediport catheter terminating at the caval atrial junction. Spleen is mildly enlarged at 13.5 cm long axis axial image 134. Moderate axial joint space loss and spurring both hip joints. Spurring throughout the thoracolumbar s pine. IMPRESSION: Active metastatic disease with thoracic mediastinal adenopathy and mid abdominal retroper itoneal adenopathy as detailed above. Correlation with old outside CT and/or PET CT would be benefici alHudson
== END | disposition home or self-care (01) ==
LOC: RADPETMAIN 13:32
PROVIDERS: ATTEND Internal Medicine
DX: C24.9 Malignant neoplasm of biliary tract, unspecified (principal); R59.0 Localized enlarged lymph nodes; Z92.3 Personal history of irradiation; Z92.21 Personal history of antineoplastic chemotherapy
CPT/HCPCS: 78815; A9552

== ENCOUNTER → 2020-12-16 | Outpatient (CLI) | payer OTHER ==
--- NOTE | 2020-12-20 06:38 | PE ---
EXAMINATION TYPE: PET CT fusion skull to thigh DATE OF EXAM: 12/16/2020 COMPARISON: PET CT April 08, 2020 HISTORY: Cholangiocarcinoma diagnosed 2018 treated with chemotherapy through October 2020 after rec urrence 2019. TECHNIQUE: Following the intravenous administration of 11.1 mCi of F-18 FDG, whole body images are p erformed from the skull base to the midthigh. Images are reviewed on the computer in the coronal, ax ial, and sagittal planes. Reconstructed rotating images are created on independent workstation and r eviewed on the computer. A localization and attenuation correction CT is performed in conjunction w ith the PET scan. Blood glucose level was 79. SCAN: Subsequent Scan FINDINGS: SKULL BASE AND NECK: No new areas of abnormal hypermetabolic uptake CHEST, MEDIASTINUM, AND HILAR REGION: Possible residual 5 to 6 mm right mid lung nodule axial image 1 02 remains a metabolic. Interval resolution of abnormal prevascular lymph nodes. Prominent but subcentimeter lymph nodes seen on current study near axial image 87 are ametabolic. No new areas of abnormal hypermetabolic uptake. ABDOMEN AND PELVIS: Persistent internal biliary drainage catheter without new pneumobilia or biliary dilatation. No abnormal hypermetabolic uptake. Interval resolution of abnormal hypermetabolic lymph n odes in the retroperitoneum posterior to the IVC at level of renal veins. More prominent splenomegaly noted without abnormal hypermetabolic uptake. No new areas of abnormal hypermetabolic uptake. OSSEOUS STRUCTURES: No new areas of abnormal hypermetabolic uptake. OTHER CT: Stable right internal jugular Mediport catheter. Subcentimeter soft tissue nodules in the anterior abdominal wall redemonstrated, probable injection g ranulomas. Moderate axial joint space loss and spurring both hip joints. Spurring throughout the thoracolumbar s pine redemonstrated. IMPRESSION: Positive treatment response in abnormal lymph nodes of the mediastinum and mid abdominal retroperitoneum.
== END | disposition home or self-care (01) ==
LOC: RADPETMAIN 14:02
PROVIDERS: ATTEND Internal Medicine
DX: R93.89 Abnormal findings on diagnostic imaging of other specified body structures (principal); D37.6 Neoplasm of uncertain behavior of liver, gallbladder and bile ducts; C22.1 Intrahepatic bile duct carcinoma; Z98.890 Other specified postprocedural states
CPT/HCPCS: 78815; A9552

== ENCOUNTER 2023-01-18 21:41 | Inpatient (IN) | payer OTHER, MEDICARE ==
[2023-01-18] MEDS ORDERED: ASPIRIN 81 MG PO STA (21:58)
[2023-01-18] MEDS ORDERED: HYDROmorphone 0.5 MG/0.5 ML SYRINGE IVP STA (21:59)
[2023-01-18] MEDS ORDERED: MAGNESIUM SULFATE-D5W PMX 1 GM in DEXTROSE/WATER 1 100ML.BAG IVPB ONE (22:02)
--- NOTE | 2023-01-18 22:24 | XR ---
EXAMINATION TYPE: XR chest 2V DATE OF EXAM: 01/18/2023 COMPARISON: 09/11/2019 HISTORY: Chest pain TECHNIQUE: 2 views FINDINGS: There is some blunting of the costophrenic angles more on the left side. There is mild pulm onary vascular congestion. There are chest leads. There is right central venous catheter with tip in the right atrium. Heart appears slightly enlarged. IMPRESSION: There is left pleural effusion and left lower lobe infiltrate which are new compared to o ld exam. There is mild cardiomegaly which is new. Mild heart failure is possible.
[2023-01-18 22:28] LABS: Anisocytosis Slight; Basophils % (A) 0 %; Eosinophils # (A) 0.1 k/uL (0-0.7); Eosinophils % (A) 1 %; HCT 34.3 % (39.0-53.0); HGB 10.6 gm/dL (13.0-17.5); Hypochromasia Moderate; Lymphocytes # (A) 0.9 k/uL (1.0-4.8); Lymphocytes % (A) 11 %; MCH 23.5 pg (25.0-35.0); MCHC 30.9 g/dL (31.0-37.0); Mean Platelet Volume 7.5; Microcytosis Moderate; Monocytes # (A) 0.2 k/uL (0-1.0); Monocytes % (A) 2 %; Neutrophils # (A) 6.6 k/uL (1.3-7.7); Neutrophils % (A) 84 %; Platelet Count 227 k/uL (150-450); Poikilocytosis Slight; RBC 4.51 m/uL (4.30-5.90); RDW 18.9 % (11.5-15.5); WBC 7.8 k/uL (3.8-10.6)
[2023-01-18 22:49] LABS: ALT 40 U/L (4-49); AST 57 U/L (17-59); African American GFR (CKD) >90 (>60 ml/min/1.73 sqM); Albumin 2.8 g/dL (3.5-5.0); Alkaline Phosphatase 491 U/L (38-126); Anion Gap 7 mmol/L; Blood Urea Nitrogen 20 mg/dL (9-20); Calcium 8.1 mg/dL (8.4-10.2); Carbon Dioxide 23 mmol/L (22-30); Chloride 106 mmol/L (98-107); Glucose 128 mg/dL (74-99); Magnesium 2.1 mg/dL (1.6-2.3); Non-African American GFR(CKD) >90 (>60 ml/min/1.73 sqM); Potassium 3.9 mmol/L (3.5-5.1); Sodium 136 mmol/L (137-145); Total Bilirubin 1.2 mg/dL (0.2-1.3); Total Protein 6.3 g/dL (6.3-8.2)
[2023-01-18 22:51] LABS: INR 1.2 (<1.2); Partial Thromboplastin Time 25.2 sec (22.0-30.0); Prothrombin Time 12.1 sec (9.0-12.0)
[2023-01-18] MEDS ORDERED: LORazepam 2 MG/ML INJ IV STA (23:25)
--- NOTE | 2023-01-18 23:38 | ED ---
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 Patient does have a history of chest pain and shortness of breath and states he had an exacerbation of a prior to arrival. Currently denies any shortness of breath. Does endorse a cough. He is not normally on oxygen. Cough is new. States his abdomen is slowly more distended but it is typical for him. States he is anxious. States he has generalized body pain but denies any pain in his chest. He has no other acute complaints at this time. Presents for further evaluation. States all this started while doing household activities. Patient also complains of right leg numbness sensation that comes and goes and describes as pins and needle sensation isolated to the lateral right thigh. States he has been having this in the past. - Related Data Home Medications Medication Instructions Recorded Confirmed Citalopram Hydrobromide [CeleXA] 40 mg PO DAILY 06/12/19 01/18/23 lamoTRIgine [LaMICtal] 100 mg PO DAILY 06/12/19 01/18/23 Acetaminophen Tab [Tylenol Tab] 1,000 mg PO Q6HR PRN 01/18/23 01/18/23 Dabigatran [Pradaxa] 150 mg PO BID 01/18/23 01/18/23 HYDROmorphone [Dilaudid] 2 mg PO Q4H PRN 01/18/23 01/18/23 Prochlorperazine [Compazine] 10 mg PO Q6H PRN 01/18/23 01/18/23 Sennosides [Senokot] 25.8 mg PO HS 01/18/23 01/18/23 traZODone HCL [Desyrel] 50 mg PO HS 01/18/23 01/18/23 Previous Rx's Medication Instructions Recorded Albuterol Inhaler [Ventolin Hfa 1 - 2 puff INHALATION RT-Q6H PRN 09/15/19 Inhaler] 30 Days #1 inhaler Allergies Allergy/AdvReac Type Severity Reaction Status Date / Time ketamine Allergy Hallucinati Verified 01/18/23 22:34 ons Penicillins Allergy Anaphylaxis Verified 01/18/23 22:34 Review of Systems ROS Statement: Those systems with pertinent positive or pertinent negative responses have been documented in the HPI. Review of Systems: CONST: Denies fever EYES: Denies blurry vision ENT: Denies nasal congestion C/V: Endorses resolved chest pain RESP: Endorses shortness of breath GI: Denies abdominal pain : Denies dysuria SKIN: Denies rash. MSK: Endorses generalized body pain NEURO: Denies headache ROS Other: All systems not noted in ROS Statement are negative. 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 getting next scan dec to see if in remission, bronchitis History of Any Multi-Drug Resistant Organisms: None Reported Past Surgical History: Tonsillectomy Additional Past Surgical History / Comment(s): shattered left arm surgery to correct, Past Anesthesia/Blood Transfusion Reactions: No Reported Reaction Past Psychological History: Bipolar, Depression Past Alcohol Use History: None Reported Past Drug Use History: None Reported - Past Family History family Additional Family Medical History / Comment(s): denies history of blood clots in the family General Exam - General Exam Comments Initial Comments: General: Appears in no acute distress. HEAD: Normal with no signs of head trauma. EYES: PERRLA, EOMI, conjunctiva normal, no discharge. ENT: Hearing grossly intact, normal oropharynx. RESPIRATORY: Clear breath sounds bilaterally. No wheezes, rales, or rhonchi. Mild hypoxia on room air to 90% which is atypical for the patient. C/V: Regular rate and rhythm. Tachycardia. S1 and S2 auscultated. Peripheral pulses 2+ intact throughout. Minimal pitting edema bilaterally. ABD: Mildly distended abdomen. Chronic for the patient. No obvious tenderness to palpation. EXT: Normal range of motion, no obvious deformity SKIN: No rashes or lesions observed on exposed skin. NEURO: Alert and oriented 4 no focal deficits. Course Vital Signs 01/18/23 01/19/23 21:47 00:33 Temperature 98.4 F Pulse Rate 120 H 91 Respiratory 18 16 Rate Blood Pressure 129/86 128/74 O2 Sat by Pulse 95 97 Oximetry Medical Decision Making - Medical Decision Making Was pt. sent in by a medical professional or institution ([facility], MAT MACHINE TENDER, urgent care, hospital, or custodial...) When possible be specific @ -No Did you speak to anyone other than the patient for history (EMS, parent, family, police, friend...)? What history was obtained from this source @ -No Did you review nursing and triage notes (agree or disagree)? Why? @ -I reviewed and agree with nursing and triage notes Were old charts reviewed (outside hosp., previous admission, EMS record, old EKG, old radiological studies, urgent care reports/EKG's, custodial records)? Report findings @ -No old charts were reviewed Differential Diagnosis (chest pain, altered mental status, abdominal pain women, abdominal pain men, vaginal bleeding, weakness, fever, dyspnea, syncope, headache, dizziness, GI bleed, back pain, seizure, CVA, palpatations, mental health, musculoskeletal)? @ -CAD, ACS, chronic pain, pneumonia, pleural effusion, infectious, anxiety. This list is nonocclusive. EKG interpreted by me (3pts min.). @ -As above X-rays interpreted by me (1pt min.). @ -Chest x-ray shows Left-sided pleural effusion/possible lower lobe infiltrate concerning for pneumonia. CT interpreted by me (1pt min.). @ -None done U/S interpreted by me (1pt. min.). @ -None done What testing was considered but not performed or refused? (CT, X-rays, U/S, labs)? Why? @ -None What meds were considered but not given or refused? Why? @ -None Did you discuss the management of the patient with other professionals (professionals i.e. N[facility] Gu, MAT MACHINE TENDER, lab, RT, psych nurse, social contact worker, sap solution manager consultant, teacher, chief business officer, caser shoe parts)? Give summary @ -No Was smoking cessation discussed for >3mins.? @ -No Was critical care preformed (if so, how long)? @ -No Were there social determinants of health that impacted care today? How? (Homelessness, low income, unemployed, alcoholism, drug addiction, transportation, low edu. Level, literacy, decrease access to med. care, longterm, rehab)? @ -No Was there de-escalation of care discussed even if they declined (Discuss DNR or withdrawal of care, Hospice)? DNR status @ -No What co-morbidities impacted this encounter? (DM, HTN, Smoking, COPD, CAD, Cancer, CVA, ARF, Chemo, Hep., AIDS, mental health diagnosis, sleep apnea, morbid obesity)? @ -History of bile duct cancer, chronic pain Was patient admitted / discharged? Hospital course, mention meds given and rout e, prescriptions, significant lab abnormalities, going to OR and other pertinent info. @ -Based on the patient's presentation and physical exam, I'm concerned for croup pulmonary etiology for his current symptoms and is complaining of chronic chest pain and symptoms. It is atypical in nature. Patient is on Pradaxa, and therefore I am not concerned for PE at this time. Patient is complaining of pain and appears to be sinus tachycardia, monitor. Mildly hypoxic on the monito r as well. Was started on nasal cannula oxygen, given IV analgesia medications, and aspirin for chest pain, IV magnesium as well as Ativan for anxiety. Patient was in agreement this plan. Tachycardia did improve after treatment. EKG shows no signs of acute ischemia. Chest x-ray shows findings concerning for a left-sided pleural effusion and possible pneumonia. Patient has a chronic microcytic anemia. Troponin is undetectable. Patient Covid, flu, RSV negative. Venous duplex was negative. I discussed results with the patient. Due to him having hypoxia between 89 and 90% which is atypical for him on room air, as well as evidence for pneumonia as well as the pleural effusion, he was started on antibiotics. Due to his ALLERGIES, was started on Levaquin. Blood cultures were obtained and sent. Patient will be admitted for evaluation by pulmonology. He was in agreement this plan. Pulmonology was consulted. I spoke with the admitting team, Dr. Perkins who admits for the [facility] who accepted the patient. Undiagnosed new problem with uncertain prognosis? @ -No Drug Therapy requiring intensive monitoring for toxicity (Heparin, Nitro, Insulin, Cardizem)? @ -No Were any procedures done? @ -No Diagnosis/symptom? @ -Atypical chest pain Acute, or Chronic, or Acute on Chronic? @ -Acute on chronic Uncomplicated (without systemic symptoms) or Complicated (systemic symptoms)? @ -Uncomplicated Side effects of treatment? @ -none Exacerbation, Progression, or Severe Exacerbation] @ -no Poses a threat to life or bodily function? @ -Potentially, depending on etiology. Diagnosis/symptom? @ -Pleural effusion Acute, or Chronic, or Acute on Chronic? @ -Acute Uncomplicated (without systemic symptoms) or Complicated (systemic symptoms)? @ -Complicated Side effects of treatment? @ -none Exacerbation, Progression, or Severe Exacerbation] @ -no Poses a threat to life or bodily function? @ -Yes, if worsens could cause significant morbidity or mortality. Diagnosis/symptom? @ -Pneumonia Acute, or Chronic, or Acute on Chronic? @ -Acute Uncomplicated (without systemic symptoms) or Complicated (systemic symptoms)? @ -Complicated Side effects of treatment? @ -none Exacerbation, Progression, or Severe Exacerbation] @ -no Poses a threat to life or bodily function? @ -Yes, if worsens could cause significant morbidity or mortality. Diagnosis/symptom? @ -Hypoxia Acute, or Chronic, or Acute on Chronic? @ -Acute Uncomplicated (without systemic symptoms) or Complicated (systemic symptoms)? @ -Uncomplicated Side effects of treatment? @ -none Exacerbation, Progression, or Severe Exacerbation] @ -no Poses a threat to life or bodily function? @ -no - Lab Data Result diagrams: 01/18/23 22:06 01/18/23 22:06 Lab Results 01/18/23 01/18/23 01/18/23 Range/Units 22:06 22:06 22:06 WBC 7.8 (3.8-10.6) k/uL RBC 4.51 (4.30-5.90) m/uL Hgb 10.6 L (13.0-17.5) gm/dL Hct 34.3 L (39.0-53.0) % MCV 76.0 L (80.0-100.0) fL MCH 23.5 L (25.0-35.0) pg MCHC 30.9 L (31.0-37.0) g/dL RDW 18.9 H (11.5-15.5) % Plt Count 227 (150-450) k/uL MPV 7.5 Neutrophils % 84 % Lymphocytes % 11 % Monocytes % 2 % Eosinophils % 1 % Basophils % 0 % Neutrophils # 6.6 (1.3-7.7) k/uL Lymphocytes # 0.9 L (1.0-4.8) k/uL Monocytes # 0.2 (0-1.0) k/uL Eosinophils # 0.1 (0-0.7) k/uL Basophils # 0.0 (0-0.2) k/uL Hypochromasia Moderate Poikilocytosis Slight Anisocytosis Slight Microcytosis Moderate PT 12.1 H (9.0-12.0) sec INR 1.2 H (<1.2) APTT 25.2 (22.0-30.0) sec Sodium 136 L (137-145) mmol/L Potassium 3.9 (3.5-5.1) mmol/L Chloride 106 (98-107) mmol/L Carbon Dioxide 23 (22-30) mmol/L Anion Gap 7 mmol/L BUN 20 (9-20) mg/dL Creatinine 0.69 (0.66-1.25) mg/dL Est GFR (CKD-EPI)AfAm >90 (>60 ml/min/1.73 sqM) Est GFR (CKD-EPI)NonAf >90 (>60 ml/min/1.73 sqM) Glucose 128 H (74-99) mg/dL Calcium 8.1 L (8.4-10.2) mg/dL Magnesium 2.1 (1.6-2.3) mg/dL Total Bilirubin 1.2 (0.2-1.3) mg/dL AST 57 (17-59) U/L ALT 40 (4-49) U/L Alkaline Phosphatase 491 H (38-126) U/L Troponin I (0.000-0.034) ng/mL NT-Pro-B Natriuret Pep pg/mL Total Protein 6.3 (6.3-8.2) g/dL Albumin 2.8 L (3.5-5.0) g/dL Influenza Type A (PCR) (Not Detectd) Influenza Type B (PCR) (Not Detectd) RSV (PCR) (Not Detectd) SARS-CoV-2 (PCR) (Not Detectd) 01/18/23 01/18/23 01/18/23 Range/Units 22:06 22:06 22:06 WBC (3.8-10.6) k/uL RBC (4.30-5.90) m/uL Hgb (13.0-17.5) gm/dL Hct (39.0-53.0) % MCV (80.0-100.0) fL MCH (25.0-35.0) pg MCHC (31.0-37.0) g/dL RDW (11.5-15.5) % Plt Count (150-450) k/uL MPV Neutrophils % % Lymphocytes % % Monocytes % % Eosinophils % % Basophils % % Neutrophils # (1.3-7.7) k/uL Lymphocytes # (1.0-4.8) k/uL Monocytes # (0-1.0) k/uL Eosinophils # (0-0.7) k/uL Basophils # (0-0.2) k/uL Hypochromasia Poikilocytosis Anisocytosis Microcytosis PT (9.0-12.0) sec INR (<1.2) APTT (22.0-30.0) sec Sodium (137-145) mmol/L Potassium (3.5-5.1) mmol/L Chloride (98-107) mmol/L Carbon Dioxide (22-30) mmol/L Anion Gap mmol/L BUN (9-20) mg/dL Creatinine (0.66-1.25) mg/dL Est GFR (CKD-EPI)AfAm (>60 ml/min/1.73 sqM) Est GFR (CKD-EPI)NonAf (>60 ml/min/1.73 sqM) Glucose (74-99) mg/dL Calcium (8.4-10.2) mg/dL Magnesium (1.6-2.3) mg/dL Total Bilirubin (0.2-1.3) mg/dL AST (17-59) U/L ALT (4-49) U/L Alkaline Phosphatase (38-126) U/L Troponin I <0.012 (0.000-0.034) ng/mL NT-Pro-B Natriuret Pep 18 pg/mL Total Protein (6.3-8.2) g/dL Albumin (3.5-5.0) g/dL Influenza Type A (PCR) Not Detected (Not Detectd) Influenza Type B (PCR) Not Detected (Not Detectd) RSV (PCR) Not Detected (Not Detectd) SARS-CoV-2 (PCR) Not Detected (Not Detectd) Disposition Clinical Impression: Atypical chest pain, Pneumonia, Hypoxia, Pleural effusion Disposition: ADMITTED IP TO THIS HOSP Condition: Stable Time of Disposition: 00:05
--- NOTE | 2023-01-18 23:48 | US ---
EXAMINATION TYPE: US venous doppler duplex LE RT DATE OF EXAM: 01/18/2023 11:30 PM COMPARISON: NONE CLINICAL HISTORY: pain, history of dvt. pain SIDE PERFORMED: Right TECHNIQUE: The lower extremity deep venous system is examined utilizing real time linear array sonog bola with graded compression, doppler sonography and color-flow sonography. VESSELS IMAGED: Common Femoral Vein Deep Femoral Vein Greater Saphenous Vein * Femoral Vein Popliteal Vein Small Saphenous Vein * Proximal Calf Veins (* superficial vessels) Right Leg: Negative for DVT IMPRESSION: No evidence of deep vein thrombosis in the right leg.
[2023-01-19] MEDS ORDERED: PNEUMONIA PROTOCOL UTILIZED 1 EACH MISC PO PRN (00:15)
[2023-01-19] MEDS ORDERED: LEVOFLOXACIN 750MG-D5W PMX 750 MG in DEXTROSE/WATER 1 150ML.BAG IVPB STA (00:15)
[2023-01-19] MEDS ORDERED: NALOXONE 0.4 MG/ML 1 ML VIAL IV PRN (00:15)
[2023-01-19] MEDS ORDERED: PROCHLORPERAZINE 10 MG TAB PO PRN (00:19)
[2023-01-19] MEDS ORDERED: LEVOFLOXACIN 750 MG TAB PO SCH ×2 (00:30→14:00)
[2023-01-19] MEDS: HYDROmorphone 2 MG TAB PO PRN ×2 (02:12→06:29)
--- NOTE | 2023-01-19 03:22 | P.HPIM ---
History of Present Illness H&P Date: 01/19/23 The patient is a 57-year-old male with a PMH of stage IV cholangiocarcinoma (diagnosed in 2019, status post multiple cycles of chemotherapy and radiation, currently following with [facility], requiring frequent paracentesis), history of DVT/PE on Pradaxa who presents to the emergency room with complaints of gradually worsening shortness of breath and chest discomfort. The patient reports that over the past several months, his activity tolerance is greatly diminished to where he now is unable to perform his ADLs. He also reports right-sided chest discomfort which is also been gradually worsening, sharp and pressure-like, occurring throughout the right chest, nonpleuritic, with varying intensity, rated at 8 out of 10 at the time of interview. He also reports a cough over the past few weeks productive of clear and green phlegm. Denies fever or chills. Denies abdominal pain, nausea, vomiting, diarrhea. Patient underwent an extensive nausea and emergency room with a chest x-ray showing a left-sided pleural effusion with a left lower lobe infiltrate as well as mild cardiomegaly. Venous Doppler was negative. EKG revealed sinus tachycardia at 101 bpm with diffuse T-wave flattening as reviewed by me. Laboratory evaluation was remarkable for hemoglobin of 10.6 (no recent labs available for comparison), MCV 76, alk phos 491, INR 1.2, AST 57, ALT 40, troponin less than 0.012, proBNP 18, BUN 20, creatinine 0.69. Review of systems: Pertinent positives and negatives as discussed in HPI, a complete review of systems was performed and all other systems are negative. Physical examination: Vital signs reviewed General: Chronically ill-appearing male, no distress, appears at stated age Derm: no unusual rashes/lesions, warm Head: atraumatic, normocephalic, symmetric Eyes: EOMI, no lid lag, anicteric sclera, pupils equal round reactive to light ENT: Nose and ears atraumatic Neck: No cervical lymphadenopathy, trachea midline, supple Mouth: no lip lesion, mucus membranes moist Cardiovascular: S1S2 reg, no murmur, positive dorsalis pedis pulse bilateral, no edema Lungs: CTA bilateral, no rhonchi, no rales, no accessory muscle use Abdominal: Distended, nontender to palpation, no guarding Ext: muscle strength 5 out of 5 in all 4 extremities grossly, no gross muscle atrophy, no contractures, Neuro: CN II-XI grossly intact, no gross focal neuro deficits Psych: Alert, oriented, appropriate affect Assessment: Acute hypoxic respiratory failure Left-sided pleural effusion Community acquired pneumonia Stage IV cholangiocarcinoma Ascites Imaging: Chest x-ray showed a left-sided pleural effusion with a left lower lobe infiltrate as well as mild cardiomegaly. Venous Doppler was negative. EKG revealed sinus tachycardia at 101 bpm with diffuse T-wave flattening as reviewed by me. Data Review: Vital signs from the emergency room reviewed with BP 129/86, SpO2 95% on 2 L of the cannula oxygen, pulse 120, and temp 98.4F with a respiratory rate 18. Laboratory evaluation was remarkable for hemoglobin of 10.6 (no recent labs available for comparison), MCV 76, alk phos 491, INR 1.2, AST 57, ALT 40, troponin less than 0.012, proBNP 18, BUN 20, creatinine 0.69. Plan: Pulmonary consulted for left-sided paracentesis with worsening hypoxic respiratory failure Continue with antibiotics for community acquired pneumonia including ceftriaxone 2 g every 24 hours and and azithromycin 500 mg by mouth daily Continue with home pain medication Dilaudid 2 mg po q4h prn DVT prophylaxis: Pradaxa The patient is admitted with an anticipated greater than 2 midnight stay for evaluation of hypoxic respiratory failure CODE STATUS: Full Code Discussed with: Patient Anticipated discharge place: Home Past Medical History Past Medical History: Deep Vein Thrombosis (DVT), Pulmonary Embolus (PE) Additional Past Medical History / Comment(s): stage 4 bile duct cancer mets to the left lung and liver , large pe in right, small pe multiple in left, left leg dvt, finished chemo and radiation weekly, bronchitis History of Any Multi-Drug Resistant Organisms: None Reported Past Surgical History: Tonsillectomy Additional Past Surgical History / Comment(s): shattered left arm surgery to correct, Past Anesthesia/Blood Transfusion Reactions: No Reported Reaction Past Psychological History: Bipolar, Depression Smoking Status: Former smoker Past Alcohol Use History: None Reported Past Drug Use History: None Reported - Past Family History family Additional Family Medical History / Comment(s): denies history of blood clots in the family Medications and Allergies Home Medications Medication Instructions Recorded Confirmed Type Citalopram Hydrobromide [CeleXA] 40 mg PO DAILY 06/12/19 01/18/23 History lamoTRIgine [LaMICtal] 100 mg PO DAILY 06/12/19 01/18/23 History Albuterol Inhaler [Ventolin Hfa 1 - 2 puff INHALATION RT-Q6H PRN 09/15/19 Rx Inhaler] 30 Days #1 inhaler Acetaminophen Tab [Tylenol Tab] 1,000 mg PO Q6HR PRN 01/18/23 01/18/23 History Dabigatran [Pradaxa] 150 mg PO BID 01/18/23 01/18/23 History HYDROmorphone [Dilaudid] 2 mg PO Q4H PRN 01/18/23 01/18/23 History Prochlorperazine [Compazine] 10 mg PO Q6H PRN 01/18/23 01/18/23 History Sennosides [Senokot] 25.8 mg PO HS 01/18/23 01/18/23 History traZODone HCL [Desyrel] 50 mg PO HS 01/18/23 01/18/23 History Allergies Allergy/AdvReac Type Severity Reaction Status Date / Time ketamine Allergy Hallucinati Verified 01/18/23 22:34 ons Penicillins Allergy Anaphylaxis Verified 01/18/23 22:34 Physical Exam Vitals: Vital Signs Temp Pulse Pulse Resp BP BP Pulse Ox 01/19/23 02:00 98.2 F 92 18 106/73 97 01/19/23 00:33 91 16 128/74 97 01/18/23 21:47 98.4 F 120 H 18 129/86 95 Intake and Output 01/18/23 01/18/23 01/19/23 14:59 22:59 06:59 Other: Weight 99.79 kg 99.79 kg Results CBC & Chem 7: 01/18/23 22:06 01/18/23 22:06 Labs: Abnormal Lab Results - Last 24 Hours (Table) 01/18/23 01/18/23 01/18/23 Range/Units 22:06 22:06 22:06 Hgb 10.6 L (13.0-17.5) gm/dL Hct 34.3 L (39.0-53.0) % MCV 76.0 L (80.0-100.0) fL MCH 23.5 L (25.0-35.0) pg MCHC 30.9 L (31.0-37.0) g/dL RDW 18.9 H (11.5-15.5) % Lymphocytes # 0.9 L (1.0-4.8) k/uL PT 12.1 H (9.0-12.0) sec INR 1.2 H (<1.2) Sodium 136 L (137-145) mmol/L Glucose 128 H (74-99) mg/dL Calcium 8.1 L (8.4-10.2) mg/dL Alkaline Phosphatase 491 H (38-126) U/L Albumin 2.8 L (3.5-5.0) g/dL Thrombosis Risk Factor Assmnt - Choose All That Apply Any of the Below Risk Factors Present?: Yes Each Factor Represents 1 point: Age 41-60 years, Obesity (BMI >25) Each Risk Factor Represents 3 Points: History of DVT/PE Thrombosis Risk Factor Assessment Total Risk Factor Score: 5 Thrombosis Risk Factor Assessment Level: High Risk
[2023-01-19 07:32] LABS: Appearance,Urine Clear (Clear); Bilirubin,Urine Negative (Negative); Blood,Urine Negative (Negative); Color,Urine Yellow; Glucose,Urine (UA) Negative (Negative); Ketones,Urine Negative (Negative); Leukocyte Esterase,Urine Negative (Negative); Mucus,Urine Many /hpf; Nitrite,Urine Negative (Negative); PH, Urine 5.5 (5.0-8.0); Protein,Urine 1+ (Negative); RBC,Urine 1 /hpf (0-5); Specific Gravity,Urine 1.033 (1.001-1.035); WBC,Urine 13 /hpf (0-5)
[2023-01-19] MEDS: HYDROmorphone 0.5 MG/0.5 ML SYRINGE IVP PRN ×5 (10:35→22:22)
[2023-01-19] MEDS: lamoTRIgine 100 MG TAB PO SCH (10:45)
[2023-01-19] MEDS: AZITHROMYCIN 500 MG TAB PO SCH (10:45)
[2023-01-19] MEDS: CITALOPRAM HYDROBROMIDE 20 MG TAB PO SCH (10:45)
[2023-01-19] MEDS: DABIGATRAN 150 MG CAP PO SCH ×2 (10:46→21:30)
[2023-01-19] MEDS: ALBUTEROL NEBULIZED 2.5 MG/3 ML INHALATION PRN (12:05)
--- NOTE | 2023-01-19 12:43 | P.CNPUL ---
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 He states he has stage III bile duct cancer and recurrent ascites requiring paracentesis nearly weekly. He follows at the [facility] in [place] for his medical needs. No records available currently. He presented here to the emergency room last evening with increasing shortness of breath, chest pain, dyspnea on exertion. He is also having issues with right lower extremity tingling and numbness sensations mostly near the lateral right thigh. Doppler of the right leg was negative for DVT. Chest x-ray does show a left pleural effusion and left lower lobe infiltrate. Mild cardiomegaly. White count 7.8. Hemoglobin 10.6. Platelets 227. INR 1.2. Sodium 136. Potassium 3.9. Bicarb 23. BUN 20. Creatinine 0.69. Glucose 128. Troponins negative 3. Pro-calcitonin 0.20. Urinalysis clean. Influenza screen negative. RSV screen negative. COVID-19 screen negative. He is seen today in consultation on the regular medical floor. He is currently resting comfortably in bed. Awake and alert in no acute distress. His voice is quite soft due to the vocal cord paralysis. He is maintaining O2 saturations in the 90s on 3 L/m per nasal cannula. He has a loose nonproductive cough. His abdomen is quite distended. He is afebrile. Hemodynamically stable. He's been initiated on ceftriaxone and azithromycin. Review of Systems REVIEW OF SYSTEMS: CONSTITUTIONAL: Denies any recent significant weight loss or weight gain. EYES: Denies change in vision. EARS, NOSE, MOUTH, THROAT: Denies headaches, denies sore throat. CARDIOVASCULAR: Positive for chest pain, no palpitations or syncopal episodes. RESPIRATORY: Positive for shortness of breath, cough, congestion no hemoptysis. GASTROINTESTINAL: Positive for abdominal pain and distention GENITOURINARY: Denies hematuria, denies infections. MUSKULOSKELETAL: Denies pain, denies swelling. INTEGUMENTARY: Denies rash, denies eczema. NEUROLOGICAL: Denies recent memory loss, no recent seizure activity. PSYCHIATRIC: Denies anxiety, denies depression. HEMATOLOGIC/LYMPHATIC: Denies anemia, denies enlarged lymph nodes. 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 getting next scan dec to see if in remission, bronchitis History of Any Multi-Drug Resistant Organisms: None Reported Past Surgical History: Tonsillectomy Additional Past Surgical History / Comment(s): shattered left arm surgery to correct, Past Anesthesia/Blood Transfusion Reactions: No Reported Reaction Past Psychological History: Bipolar, Depression Past Alcohol Use History: None Reported Past Drug Use History: None Reported - Past Family History family Additional Family Medical History / Comment(s): denies history of blood clots in the family Medications and Allergies Home Medications Medication Instructions Recorded Confirmed Type Citalopram Hydrobromide [CeleXA] 40 mg PO DAILY 06/12/19 01/18/23 History lamoTRIgine [LaMICtal] 100 mg PO DAILY 06/12/19 01/18/23 History Albuterol Inhaler [Ventolin Hfa 1 - 2 puff INHALATION RT-Q6H PRN 09/15/19 01/18/23 Rx Inhaler] 30 Days #1 inhaler Acetaminophen Tab [Tylenol Tab] 1,000 mg PO Q6HR PRN 01/18/23 01/18/23 History Dabigatran [Pradaxa] 150 mg PO BID 01/18/23 01/18/23 History HYDROmorphone [Dilaudid] 2 mg PO Q4H PRN 01/18/23 01/18/23 History Prochlorperazine [Compazine] 10 mg PO Q6H PRN 01/18/23 01/18/23 History Sennosides [Senokot] 25.8 mg PO HS 01/18/23 01/18/23 History traZODone HCL [Desyrel] 50 mg PO HS 01/18/23 01/18/23 History Allergies Allergy/AdvReac Type Severity Reaction Status Date / Time ketamine Allergy Hallucinati Verified 01/18/23 22:34 ons Penicillins Allergy Anaphylaxis Verified 01/18/23 22:34 Physical Exam Vitals: Vital Signs Temp Pulse Pulse Resp BP BP BP 01/19/23 12:15 88 01/19/23 12:05 84 01/19/23 08:00 01/19/23 07:27 97.7 F 90 17 122/82 01/19/23 03:34 91 20 01/19/23 02:00 98.2 F 92 18 106/73 01/19/23 00:33 91 16 128/74 01/18/23 21:47 98.4 F 120 H 18 129/86 Pulse Ox 01/19/23 12:15 01/19/23 12:05 01/19/23 08:00 96 01/19/23 07:27 96 01/19/23 03:34 01/19/23 02:00 97 01/19/23 00:33 97 01/18/23 21:47 95 Intake and Output 01/18/23 01/19/23 01/19/23 22:59 06:59 14:59 Intake Total 170 Balance 170 Intake: IV 20 Invasive Line 2 20 Intake, IV Titration 150 Amount Levofloxacin 750Mg-D5w 150 Pmx 750 mg In Dextrose/ Water 1 150ml.bag @ 100 mls/hr IVPB ONCE STA Rx#: [id number] Other: Voiding Method Toilet Weight 99.79 kg 99.79 kg GENERAL EXAM: Alert, pleasant 57-year-old male patient, on 3 L nasal cannula, comfortable in no apparent distress. HEAD: Normocephalic. EYES: Normal reaction of pupils, equal size. NOSE: Clear with pink turbinates. THROAT: No erythema or exudates. NECK: No masses, no JVD. CHEST: No chest wall deformity. LUNGS: Equal air entry with few scattered rhonchi, crackles in the left lung base. CVS: S1 and S2 normal with no audible murmur, regular rhythm. ABDOMEN: Distended. Normal bowel sounds, no guarding or rigidity. SPINE: No scoliosis or deformity SKIN: No rashes CENTRAL NERVOUS SYSTEM: No focal deficits, tone is normal in all 4 extremities. EXTREMITIES: There is no peripheral edema. No clubbing, no cyanosis. Peripheral pulses are intact. Results - Laboratory Findings CBC and BMP: 01/18/23 22:06 01/18/23 22:06 PT/INR, D-dimer PT 12.1 sec (9.0-12.0) H 01/18/23 22:06 INR 1.2 (<1.2) H 01/18/23 22:06 Abnormal lab findings: Abnormal Labs 01/18/23 01/18/23 01/18/23 22:06 22:06 22:06 Hgb 10.6 L Hct 34.3 L MCV 76.0 L MCH 23.5 L MCHC 30.9 L RDW 18.9 H Lymphocytes # 0.9 L PT 12.1 H INR 1.2 H Sodium 136 L Glucose 128 H Calcium 8.1 L Alkaline Phosphatase 491 H Albumin 2.8 L Procalcitonin Urine Protein Urine WBC Urine Mucus 01/19/23 01/19/23 06:43 06:50 Hgb Hct MCV MCH MCHC RDW Lymphocytes # PT INR Sodium Glucose Calcium Alkaline Phosphatase Albumin Procalcitonin 0.20 H Urine Protein 1+ H Urine WBC 13 H Urine Mucus Many H - Diagnostic Findings Chest x-ray: image reviewed Assessment and Plan Assessment: Acute hypoxemic respiratory failure secondary to a left lower lobe infiltrate. Suspect community-acquired pneumonia. Procalcitonin 0.20. Currently on ceftriaxone and azithromycin Atypical chest pain, acute coronary syndrome ruled out Abdominal distention secondary to ascites Right lower extremity with pain and tingling numbness. Doppler ruled out DVT History of stage III bile duct cancer being treated at the [facility] History of paralyzed vocal cord secondary to metastatic disease History of bipolar disorder History of depression History of previous PE/DVT currently on Peridex Plan: The patient was seen and evaluated Chest x-ray, labs and medications reviewed Continue ceftriaxone and azithromycin Titrate the FiO2 as tolerated Consult interventional radiology for paracentesis Obtain records from the [facility] in [place] if possible We will continue to follow and make further recommendations based on his clinical status I have personally seen and examined the patient, performed the documentation and the assessment and plan as written. Number of minutes spent on the visit: 20.
[2023-01-19] MEDS: ONDANSETRON 4 MG/2 ML VIAL IVP PRN (13:16)
[2023-01-19] MEDS: SENNOSIDES-DOCUSATE SODIUM 1 EACH TAB PO SCH ×2 (13:26→21:30)
[2023-01-19] MEDS: traZODone HCL 50 MG TAB PO SCH (21:30)
[2023-01-19] MEDS ORDERED: FAMOTIDINE 20 MG TAB PO STA (21:36)
[2023-01-20] MEDS: HYDROmorphone 0.5 MG/0.5 ML SYRINGE IVP PRN ×10 (02:02→22:52)
--- NOTE | 2023-01-20 07:21 | XR ---
EXAMINATION TYPE: XR chest 2V DATE OF EXAM: 01/20/2023 COMPARISON: 01/18/2023 INDICATION: Pneumonia TECHNIQUE: Frontal and lateral views of the chest are obtained. FINDINGS: The heart size is mildly prominent. The pulmonary vasculature is normal. Small left pleural effusion is present. Bibasilar infiltrates are present for is present on the right with the tip in the right atrium. IMPRESSION: 1. Bibasilar infiltrates. 2. Small left pleural effusion. 3. Mild cardiomegaly. 4. Findings appear stable. Correlate for CHF.
[2023-01-20] MEDS: SENNOSIDES-DOCUSATE SODIUM 1 EACH TAB PO SCH ×2 (08:39→20:42)
[2023-01-20] MEDS: CITALOPRAM HYDROBROMIDE 20 MG TAB PO SCH (08:39)
[2023-01-20] MEDS: lamoTRIgine 100 MG TAB PO SCH (08:39)
[2023-01-20] MEDS: AZITHROMYCIN 500 MG TAB PO SCH (08:39)
[2023-01-20] MEDS: DABIGATRAN 150 MG CAP PO SCH ×2 (08:39→21:21)
[2023-01-20 09:14] LABS: Basophils # (A) 0.03 X 10*3/uL (0.00-0.10); Basophils % (A) 0.6 %; Eosinophils # (A) 0.12 X 10*3/uL (0.04-0.35); Eosinophils % (A) 2.4 %; HGB 9.1 g/dL (13.0-17.0); Lymphocytes # (A) 1.17 X 10*3/uL (0.90-5.00); Lymphocytes % (A) 23.7 %; MCH 22.9 pg (27.0-32.0); MCHC 29.4 g/dL (32.0-37.0); MCV 78.1 fL (80.0-97.0); Mean Platelet Volume 10.4 fL (9.5-12.2); Monocytes # (A) 0.47 X 10*3/uL (0.20-1.00); Monocytes % (A) 9.5 %; NRBC Per 100 WBC 0 /100 WBCS (0.0-0.0); Neutrophils % (A) 62.8 %; Platelet Count 193 X 10*3/uL (140-440); RBC 3.97 X 10*6/uL (4.40-5.60); RDW 20.1 % (11.5-14.5); WBC 4.94 X 10*3/uL (4.50-10.00)
[2023-01-20 09:23] LABS: Anion Gap 7.4 mmol/L (10.00-18.00); BUN/Creat Ratio 23.94 Ratio (12.00-20.00); Blood Urea Nitrogen 17.5 mg/dL (9.0-27.0); Calcium 8.3 mg/dL (8.7-10.3); Carbon Dioxide 27.4 mmol/L (20.0-27.5); Non-African American GFR(CKD) 104.4 (60.0-200.0); Potassium 3.9 mmol/L (3.5-5.5)
--- NOTE | 2023-01-20 11:47 | P.PN ---
Subjective Progress Note Date: 01/20/23 Patient reports still feeling generally weak. He is able to walk around/ambulate with some dyspnea on exertion, but no hypoxia. Plans for paracentesis tomorrow Gen: awake, alert HEENT: normocephalic, atraumatic, good hearing acuity, moist mucous membranes Resp: good air exchange, breathing comfortably with no accessory muscle use CVS: good distal perfusion x 4, GI: soft, NTTP, ND : no SPT, no CVAT, hutchison catheter not present MSK: no pitting edema, no clubbing Neuro: non-focal, moving all extremities Psych: cooperative, euthymic mood Hospital course: The patient is a 57-year-old male with a PMH of stage IV cholangiocarcinoma (diagnosed in 2019, status post multiple cycles of chemotherapy and radiation, currently following with [facility], requiring frequent paracentesis), history of DVT/PE on Pradaxa who presented to the emergency room with complaints of gradually worsening shortness of breath and chest discomfort. Vital signs from the emergency room reviewed with BP 129/86, SpO2 95% on 2 L of the cannula oxygen, pulse 120, and temp 98.4F with a respiratory rate 18. Laboratory evaluation was remarkable for hemoglobin of 10.6 (no recent labs available for comparison), MCV 76, alk phos 491, INR 1.2, AST 57, ALT 40, troponin less than 0.012, proBNP 18, BUN 20, creatinine 0.69. Chest x-ray showing a left-sided pleural effusion with a left lower lobe infiltrate as well as mild cardiomegaly. Venous Doppler was negative. EKG revealed sinus tachycardia at 101 bpm with diffuse T-wave flattening. Case was discussed with emergency room physician, patient was admitted to the hospital for further evaluation of respiratory failure, left-sided pleural effusion, community acquired pneumonia. Assessment: Acute hypoxic respiratory failure Left-sided pleural effusion Community acquired pneumonia Stage IV cholangiocarcinoma Ascites Plan: Today, patient is afebrile, 106/64, heart rate 99, 99% on room air CBC is reviewed, hemoglobin is 9.1, down from 10.6. Chemistries are unremarkable. Procalcitonin yesterday was 0.2. UA shows 1+ glucose, 13 white blood cells, many mucus Repeat CBC, basic metabolic panel, magnesium tomorrow Pulmonology note reviewed from 01/19, interventional radiology consulted for thoracentesis Continue ceftriaxone 2 g every 24 hours, azithromycin 500 mg by mouth daily Continue albuterol every 6 hours when necessary Continue home dose of Dilaudid 2 mg by mouth every 4 hours when necessary Increased IV Dilaudid 0.5 mg to every 2 hours frequency Continue Dabigatran 150 mg twice a day Continue lamotrigine 100 mg daily Patient is full code DVT prophylaxis is covered with dabigatran Objective - Vital Signs Vital signs: Vital Signs Temp 97.7 F 01/20/23 08:00 Pulse 99 01/20/23 08:00 Resp 16 01/20/23 08:00 BP 106/68 01/20/23 08:00 Pulse Ox 94 L 01/20/23 08:22 FiO2 Intake & Output 01/19/23 01/20/23 01/20/23 18:59 06:59 18:59 Other: Voiding Method Toilet Toilet # Voids 3 - Labs CBC & Chem 7: 01/20/23 05:12 01/20/23 05:12 Labs: Abnormal Lab Results - Last 24 Hours (Table) 01/20/23 01/20/23 Range/Units 05:12 05:12 RBC 3.97 L (4.40-5.60) X 10*6/uL Hgb 9.1 L (13.0-17.0) g/dL Hct 31.0 L (39.6-50.0) % MCV 78.1 L (80.0-97.0) fL MCH 22.9 L (27.0-32.0) pg MCHC 29.4 L (32.0-37.0) g/dL RDW 20.1 H (11.5-14.5) % Immature Gran # 0.05 H (0.00-0.04) X 10*3/uL Anion Gap 7.40 L (10.00-18.00) mmol/L BUN/Creatinine Ratio 23.94 H (12.00-20.00) Ratio Calcium 8.3 L (8.7-10.3) mg/dL Microbiology - Last 24 Hours (Table) 01/19/23 12:29 Gram Stain - Preliminary Sputum Sputum Culture - Preliminary 01/19/23 00:30 Blood Culture - Preliminary Blood No Growth after 24 hours 01/19/23 00:15 Blood Culture - Preliminary Blood No Growth after 24 hours 01/19/23 06:50 Urine Culture - Preliminary Urine,Voided
--- NOTE | 2023-01-20 12:03 | P.PN ---
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 He states he has stage III bile duct cancer and recurrent ascites requiring paracentesis nearly weekly. He follows at the [facility] in [place] for his medical needs. No records available currently. He presented here to the emergency room last evening with increasing shortness of breath, chest pain, dyspnea on exertion. He is also having issues with right lower extremity tingling and numbness sensations mostly near the lateral right thigh. Doppler of the right leg was negative for DVT. Chest x-ray does show a left pleural effusion and left lower lobe infiltrate. Mild cardiomegaly. White count 7.8. Hemoglobin 10.6. Platelets 227. INR 1.2. Sodium 136. Potassium 3.9. Bicarb 23. BUN 20. Creatinine 0.69. Glucose 128. Troponins negative 3. Pro-calcitonin 0.20. Urinalysis clean. Influenza screen negative. RSV screen negative. COVID-19 screen negative. He is seen today in consultation on the regular medical floor. He is currently resting comfortably in bed. Awake and alert in no acute distress. His voice is quite soft due to the vocal cord paralysis. He is maintaining O2 saturations in the 90s on 3 L/m per nasal cannula. He has a loose nonproductive cough. His abdomen is quite distended. He is afebrile. Hemodynamically stable. He's been initiated on ceftriaxone and azithromycin. The patient is seen today 01/20/2023 in follow-up on the regular medical floor. He is resting comfortably in bed. Awake and alert in no acute distress. Feeling a bit better today compared to yesterday. Maintaining good O2 saturations in the mid to upper 90s on 4 L high flow nasal cannula. He is afebrile. Hemodynamically stable. Chest x-ray reveals bibasilar infiltrates. Small left pleural effusion. Mild cardiomegaly. Blood cultures revealed no growth. Urine culture and sputum cultures pending. White count 4.9. Hemoglobin 9.1. Platelets 193. Sodium 136. Potassium 3.9. Bicarb 27. BUN 17. Creatinine 0.7. Pro-calcitonin 0.20. Continued on antibiotics in the form of ceftriaxone and azithromycin. Remains on Pradaxa. Objective - Vital Signs Vital signs: Vital Signs Temp 97.7 F 01/20/23 08:00 Pulse 99 01/20/23 08:00 Resp 16 01/20/23 08:00 BP 106/68 01/20/23 08:00 Pulse Ox 94 L 01/20/23 08:22 FiO2 Intake & Output 01/19/23 01/20/23 01/20/23 18:59 06:59 18:59 Other: Voiding Method Toilet Toilet Toilet # Voids 3 - Exam GENERAL EXAM: Alert, 57-year-old male patient, on 4 L nasal cannula, comfortable in no apparent distress. HEAD: Normocephalic. EYES: Normal reaction of pupils, equal size. NOSE: Clear with pink turbinates. THROAT: No erythema or exudates. NECK: No masses, no JVD. CHEST: No chest wall deformity. LUNGS: Equal air entry with few scattered rhonchi, crackles in the left lung base. CVS: S1 and S2 normal with no audible murmur, regular rhythm. ABDOMEN: Distended. Normal bowel sounds, no guarding or rigidity. SPINE: No scoliosis or deformity SKIN: No rashes CENTRAL NERVOUS SYSTEM: No focal deficits, tone is normal in all 4 extremities. EXTREMITIES: There is no peripheral edema. No clubbing, no cyanosis. Peripheral pulses are intact. - Labs CBC & Chem 7: 01/20/23 05:12 01/20/23 05:12 Labs: Abnormal Lab Results - Last 24 Hours (Table) 01/20/23 01/20/23 Range/Units 05:12 05:12 RBC 3.97 L (4.40-5.60) X 10*6/uL Hgb 9.1 L (13.0-17.0) g/dL Hct 31.0 L (39.6-50.0) % MCV 78.1 L (80.0-97.0) fL MCH 22.9 L (27.0-32.0) pg MCHC 29.4 L (32.0-37.0) g/dL RDW 20.1 H (11.5-14.5) % Immature Gran # 0.05 H (0.00-0.04) X 10*3/uL Anion Gap 7.40 L (10.00-18.00) mmol/L BUN/Creatinine Ratio 23.94 H (12.00-20.00) Ratio Calcium 8.3 L (8.7-10.3) mg/dL Microbiology - Last 24 Hours (Table) 01/19/23 12:29 Gram Stain - Preliminary Sputum Sputum Culture - Preliminary 01/19/23 00:30 Blood Culture - Preliminary Blood No Growth after 24 hours 01/19/23 00:15 Blood Culture - Preliminary Blood No Growth after 24 hours 01/19/23 06:50 Urine Culture - Preliminary Urine,Voided Assessment and Plan Assessment: Acute hypoxemic respiratory failure secondary to a left lower lobe infiltrate. Suspect community-acquired pneumonia. Procalcitonin 0.20. Currently on ceftriaxone and azithromycin Atypical chest pain, acute coronary syndrome ruled out Abdominal distention secondary to ascites, requiring weekly paracentesis Right lower extremity with pain and tingling numbness. Doppler ruled out DVT History of stage III bile duct cancer being treated at the [facility] in [place] History of paralyzed vocal cord secondary to metastatic disease History of bipolar disorder History of depression History of previous PE/DVT currently on Peridex Plan: The patient was seen and evaluated Chest x-ray, labs and medications reviewed Continue antibiotics Titrate the FiO2 as tolerated Interventional radiology for paracentesis We will continue to follow I have personally seen and examined the patient, performed the documentation and the assessment and plan as written. Number of minutes spent on the visit: 10.
[2023-01-20] MEDS: traZODone HCL 50 MG TAB PO SCH (20:42)
[2023-01-20] MEDS: ALBUTEROL NEBULIZED 2.5 MG/3 ML INHALATION PRN (20:51)
[2023-01-21] MEDS: HYDROmorphone 0.5 MG/0.5 ML SYRINGE IVP PRN ×10 (01:13→22:23)
[2023-01-21] MEDS: SENNOSIDES-DOCUSATE SODIUM 1 EACH TAB PO SCH ×2 (08:08→22:22)
[2023-01-21] MEDS: AZITHROMYCIN 500 MG TAB PO SCH (08:08)
[2023-01-21] MEDS: lamoTRIgine 100 MG TAB PO SCH (08:08)
[2023-01-21] MEDS: CITALOPRAM HYDROBROMIDE 20 MG TAB PO SCH (08:18)
[2023-01-21] MEDS: ONDANSETRON 4 MG/2 ML VIAL IVP PRN ×2 (10:01→23:51)
[2023-01-21] MEDS: DABIGATRAN 150 MG CAP PO SCH ×2 (10:23→22:20)
--- NOTE | 2023-01-21 11:03 | P.PN ---
Subjective Progress Note Date: 01/21/23 Patient reports still feeling generally weak. He is able to walk around/ambulate with some dyspnea on exertion. Gen: awake, alert HEENT: normocephalic, atraumatic, good hearing acuity, moist mucous membranes Resp: good air exchange, breathing comfortably with no accessory muscle use CVS: good distal perfusion x 4, GI: soft, NTTP, ND : no SPT, no CVAT, hutchison catheter not present MSK: no pitting edema, no clubbing Neuro: non-focal, moving all extremities Psych: cooperative, euthymic mood Hospital course: The patient is a 57-year-old male with a PMH of stage IV cholangiocarcinoma (diagnosed in 2019, status post multiple cycles of chemotherapy and radiation, currently following with [facility], requiring frequent paracentesis), history of DVT/PE on Pradaxa who presented to the emergency room with complaints of gradually worsening shortness of breath and chest discomfort. Vital signs from the emergency room reviewed with BP 129/86, SpO2 95% on 2 L of the cannula oxy gen, pulse 120, and temp 98.4F with a respiratory rate 18. Laboratory evaluation was remarkable for hemoglobin of 10.6 (no recent labs available for comparison), MCV 76, alk phos 491, INR 1.2, AST 57, ALT 40, troponin less than 0.012, proBNP 18, BUN 20, creatinine 0.69. Chest x-ray showing a left-sided pleural effusion with a left lower lobe infiltrate as well as mild cardiomegaly. Venous Doppler was negative. EKG revealed sinus tachycardia at 101 bpm with diffuse T-wave flattening. Case was discussed with emergency room physician, patient was admitted to the hospital for further evaluation of respiratory failure, left-sided pleural effusion, community acquired pneumonia. Assessment: Acute hypoxic respiratory failure Left-sided pleural effusion Community acquired pneumonia Stage IV cholangiocarcinoma Ascites Plan: Today, patient is afebrile, 118/81, heart rate 100, 99% on 4 L of nasal cannula Repeat CBC, basic metabolic panel, magnesium tomorrow Blood cultures show no growth to date at 48 hours Urine culture was negative for growth Gram stain of the sputum shows Melida albicans, likely contaminant Pulmonology note reviewed from 01/20, interventional radiology consulted for paracentesis Continue ceftriaxone 2 g every 24 hours, azithromycin 500 mg by mouth daily Continue albuterol every 6 hours when necessary Continue home dose of Dilaudid 2 mg by mouth every 4 hours when necessary Increased IV Dilaudid 0.5 mg to every 2 hours frequency Continue Dabigatran 150 mg twice a day Continue lamotrigine 100 mg daily Patient is full code DVT prophylaxis is covered with dabigatran Objective - Vital Signs Vital signs: Vital Signs Temp 97.9 F 01/21/23 07:12 Pulse 100 01/21/23 07:12 Resp 18 01/21/23 07:12 BP 118/81 01/21/23 07:12 Pulse Ox 99 01/21/23 07:12 FiO2 Intake & Output 01/20/23 01/21/23 01/21/23 18:59 06:59 18:59 Other: Voiding Method Toilet Toilet Toilet # Voids 3 3 - Labs CBC & Chem 7: 01/20/23 05:12 01/20/23 05:12 Labs: Microbiology - Last 24 Hours (Table) 01/19/23 12:29 Gram Stain - Final Sputum Sputum Culture - Final Melida albicans 01/19/23 00:30 Blood Culture - Preliminary Blood No Growth after 48 hours 01/19/23 00:15 Blood Culture - Preliminary Blood No Growth after 48 hours 01/19/23 06:50 Urine Culture - Final Urine,Voided
--- NOTE | 2023-01-21 13:49 | US ---
EXAMINATION TYPE: US chest DATE OF EXAM: 01/21/2023 COMPARISON: XR from one day earlier CLINICAL HISTORY: left lung. Left pleural effusion. History of cholangiocarcinoma. TECHNIQUE: Targeted ultrasound of the posterior lower bilateral hemithoraces EXAM MEASUREMENTS: Right Pleural Effusion pocket size: No fluid seen. Left Pleural Effusion pocket size: 8.3 cm Left skin surface to fluid distance: 3.1 cm *Lung tissue was seen within the fluid pocket at 3.1 cm as shown on images. Right side NOT marked. Left side marked for possible thoracentesis outside the dept. Pulmonologists are able to review the images in the patient?s EMR. 3 images right chest showed no significant pleural effusion. 8 images left chest shows small to moder ate size left pleural effusion which correlates with chest x-ray one day earlier. IMPRESSIONS: As above.
--- NOTE | 2023-01-21 14:22 | P.PN ---
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 He states he has stage III bile duct cancer and recurrent ascites requiring paracentesis nearly weekly. He follows at the [facility] in [place] for his medical needs. No records available currently. He presented here to the emergency room last evening with increasing shortness of breath, chest pain, dyspnea on exertion. He is also having issues with right lower extremity tingling and numbness sensations mostly near the lateral right thigh. Doppler of the right leg was negative for DVT. Chest x-ray does show a left pleural effusion and left lower lobe infiltrate. Mild cardiomegaly. White count 7.8. Hemoglobin 10.6. Platelets 227. INR 1.2. Sodium 136. Potassium 3.9. Bicarb 23. BUN 20. Creatinine 0.69. Glucose 128. Troponins negative 3. Pro-calcitonin 0.20. Urinalysis clean. Influenza screen negative. RSV screen negative. COVID-19 screen negative. He is seen today in consultation on the regular medical floor. He is currently resting comfortably in bed. Awake and alert in no acute distress. His voice is quite soft due to the vocal cord paralysis. He is maintaining O2 saturations in the 90s on 3 L/m per nasal cannula. He has a loose nonproductive cough. His abdomen is quite distended. He is afebrile. Hemodynamically stable. He's been initiated on ceftriaxone and azithromycin. The patient is seen today 01/20/2023 in follow-up on the regular medical floor. He is resting comfortably in bed. Awake and alert in no acute distress. Feeling a bit better today compared to yesterday. Maintaining good O2 saturations in the mid to upper 90s on 4 L high flow nasal cannula. He is afebrile. Hemodynamically stable. Chest x-ray reveals bibasilar infiltrates. Small left pleural effusion. Mild cardiomegaly. Blood cultures revealed no growth. Urine culture and sputum cultures pending. White count 4.9. Hemoglobin 9.1. Platelets 193. Sodium 136. Potassium 3.9. Bicarb 27. BUN 17. Creatinine 0.7. Pro-calcitonin 0.20. Continued on antibiotics in the form of ceftriaxone and azithromycin. Remains on Pradaxa. On today's evaluation of 01/21/2023, the patient is off anticoagulants. The patient is supposed underwent paracentesis tomorrow. At same time, the patient has a left-sided pleural effusion that was noted on the chest x-ray. The pa tient will benefit from a thoracentesis also. We'll keep the patient off anticoagulants for at least 24-48 hours prior to doing any procedures. The patient is known to have biliary carcinoma, being treated on outpatient basis. The patient is also known to have previous history of DVT/pulmonary embolism maintained on prdaxa and the patient is also known to have a vocal cord paralysis with chronic hoarseness and this was attributed to his underlying malignancy. Is known to have chronic depression and bipolar disorder. Blood work from today has not been done. Yesterday's blood work has been noted. He is stable on 4 L of oxygen by nasal cannula. He does not utilize any form of O2 on outpatient basis. He is afebrile. Objective - Vital Signs Vital signs: Vital Signs Temp 97.9 F 01/21/23 07:12 Pulse 100 01/21/23 07:12 Resp 18 01/21/23 07:12 BP 118/81 01/21/23 07:12 Pulse Ox 99 01/21/23 07:12 FiO2 Intake & Output 01/20/23 01/21/23 01/21/23 18:59 06:59 18:59 Other: Voiding Method Toilet Toilet Toilet # Voids 3 3 - Exam GENERAL EXAM: Alert, 57-year-old male patient, on 4 L nasal cannula, comfortable in no apparent distress. HEAD: Normocephalic. EYES: Normal reaction of pupils, equal size. NOSE: Clear with pink turbinates. THROAT: No erythema or exudates. NECK: No masses, no JVD. CHEST: No chest wall deformity. LUNGS: Equal air entry with few scattered rhonchi, crackles in the left lung base. CVS: S1 and S2 normal with no audible murmur, regular rhythm. ABDOMEN: Distended. Normal bowel sounds, no guarding or rigidity. SPINE: No scoliosis or deformity SKIN: No rashes CENTRAL NERVOUS SYSTEM: No focal deficits, tone is normal in all 4 extremities. EXTREMITIES: There is no peripheral edema. No clubbing, no cyanosis. Peripheral pulses are intact. - Labs CBC & Chem 7: 01/20/23 05:12 01/20/23 05:12 Labs: Microbiology - Last 24 Hours (Table) 01/19/23 12:29 Gram Stain - Final Sputum Sputum Culture - Final Melida albicans 01/19/23 00:30 Blood Culture - Preliminary Blood No Growth after 48 hours 01/19/23 00:15 Blood Culture - Preliminary Blood No Growth after 48 hours 01/19/23 06:50 Urine Culture - Final Urine,Voided Assessment and Plan Plan: Acute hypoxemic respiratory failure secondary to a left lower lobe infiltrate. Suspect community-acquired pneumonia. Procalcitonin 0.20. Currently on ceftriaxone and azithromycin Large left-sided pleural effusion contiguity shortness of breath and acute hypoxic respiratory failure Abdominal distention with ascites requiring periodic paracentesis Atypical chest pain, acute coronary syndrome ruled out Right lower extremity with pain and tingling numbness. Doppler ruled out DVT History of stage III bile duct cancer being treated at the [facility] in [place] History of paralyzed vocal cord secondary to metastatic disease History of bipolar disorder History of depression History of previous PE/DVT currently on Peridex Plan: Keep the patient off pradaxa Ultrasound marking of the left chest Set up this patient for a thoracentesis will be done probably within next 24-48 hours as the patient is off anticoagulants Continue antibiotics, and this is an empiric Antibiotic coverage with low suspicion for infection and the pro calcitonin level is at 0.2 Titrate the FiO2 as tolerated Interventional radiology for paracentesis We will continue to follow
[2023-01-21] MEDS: ALBUTEROL NEBULIZED 2.5 MG/3 ML INHALATION PRN (20:12)
[2023-01-21] MEDS: traZODone HCL 50 MG TAB PO SCH (22:23)
[2023-01-22] MEDS: HYDROmorphone 0.5 MG/0.5 ML SYRINGE IVP PRN ×12 (00:15→23:49)
[2023-01-22] MEDS: DABIGATRAN 150 MG CAP PO SCH ×2 (07:14→20:48)
[2023-01-22] MEDS: ALBUTEROL NEBULIZED 2.5 MG/3 ML INHALATION PRN ×2 (07:45→15:21)
[2023-01-22] MEDS: CITALOPRAM HYDROBROMIDE 20 MG TAB PO SCH (08:12)
[2023-01-22] MEDS: ONDANSETRON 4 MG/2 ML VIAL IVP PRN (08:12)
[2023-01-22] MEDS: lamoTRIgine 100 MG TAB PO SCH (08:12)
[2023-01-22] MEDS: SENNOSIDES-DOCUSATE SODIUM 1 EACH TAB PO SCH ×2 (08:13→20:49)
[2023-01-22 09:26] LABS: Basophils # (A) 0.03 X 10*3/uL (0.00-0.10); Basophils % (A) 0.5 %; Eosinophils % (A) 1.8 %; HCT 31.8 % (39.6-50.0); HGB 9.6 g/dL (13.0-17.0); Immature Grans, Automated 0.7 %; Lymphocytes # (A) 0.95 X 10*3/uL (0.90-5.00); Lymphocytes % (A) 17.3 %; MCHC 30.2 g/dL (32.0-37.0); MCV 76.3 fL (80.0-97.0); Mean Platelet Volume 9.8 fL (9.5-12.2); Monocytes # (A) 0.65 X 10*3/uL (0.20-1.00); Monocytes % (A) 11.8 %; NRBC Per 100 WBC 0 /100 WBCS (0.0-0.0); Neutrophils # (A) 3.72 X 10*3/uL (1.80-7.70); Neutrophils % (A) 67.9 %; Platelet Count 193 X 10*3/uL (140-440); RBC 4.17 X 10*6/uL (4.40-5.60); RDW 20.9 % (11.5-14.5); WBC 5.49 X 10*3/uL (4.50-10.00)
[2023-01-22 09:43] LABS: African American GFR (CKD) 131.2 (60.0-200.0); Anion Gap 10.4 mmol/L (10.00-18.00); BUN/Creat Ratio 28.83 Ratio (12.00-20.00); Blood Urea Nitrogen 17.3 mg/dL (9.0-27.0); Calcium 8.5 mg/dL (8.7-10.3); Carbon Dioxide 23.6 mmol/L (20.0-27.5); Magnesium 2.1 mg/dL (1.5-2.4); Non-African American GFR(CKD) 113.2 (60.0-200.0); Potassium 4.2 mmol/L (3.5-5.5)
--- NOTE | 2023-01-22 11:09 | P.PN ---
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 He states he has stage III bile duct cancer and recurrent ascites requiring paracentesis nearly weekly. He follows at the [facility] in [place] for his medical needs. No records available currently. He presented here to the emergency room last evening with increasing shortness of breath, chest pain, dyspnea on exertion. He is also having issues with right lower extremity tingling and numbness sensations mostly near the lateral right thigh. Doppler of the right leg was negative for DVT. Chest x-ray does show a left pleural effusion and left lower lobe infiltrate. Mild cardiomegaly. White count 7.8. Hemoglobin 10.6. Platelets 227. INR 1.2. Sodium 136. Potassium 3.9. Bicarb 23. BUN 20. Creatinine 0.69. Glucose 128. Troponins negative 3. Pro-calcitonin 0.20. Urinalysis clean. Influenza screen negative. RSV screen negative. COVID-19 screen negative. He is seen today in consultation on the regular medical floor. He is currently resting comfortably in bed. Awake and alert in no acute distress. His voice is quite soft due to the vocal cord paralysis. He is maintaining O2 saturations in the 90s on 3 L/m per nasal cannula. He has a loose nonproductive cough. His abdomen is quite distended. He is afebrile. Hemodynamically stable. He's been initiated on ceftriaxone and azithromycin. The patient is seen today 01/20/2023 in follow-up on the regular medical floor. He is resting comfortably in bed. Awake and alert in no acute distress. Feeling a bit better today compared to yesterday. Maintaining good O2 saturations in the mid to upper 90s on 4 L high flow nasal cannula. He is afebrile. Hemodynamically stable. Chest x-ray reveals bibasilar infiltrates. Small left pleural effusion. Mild cardiomegaly. Blood cultures revealed no growth. Urine culture and sputum cultures pending. White count 4.9. Hemoglobin 9.1. Platelets 193. Sodium 136. Potassium 3.9. Bicarb 27. BUN 17. Creatinine 0.7. Pro-calcitonin 0.20. Continued on antibiotics in the form of ceftriaxone and azithromycin. Remains on Pradaxa. On today's evaluation of 01/21/2023, the patient is off anticoagulants. The patient is supposed underwent paracentesis tomorrow. At same time, the patient has a left-sided pleural effusion that was noted on the chest x-ray. The pa panfilont will benefit from a thoracentesis also. We'll keep the patient off anticoagulants for at least 24-48 hours prior to doing any procedures. The patient is known to have biliary carcinoma, being treated on outpatient basis. The patient is also known to have previous history of DVT/pulmonary embolism maintained on prdaxa and the patient is also known to have a vocal cord paralysis with chronic hoarseness and this was attributed to his underlying malignancy. Is known to have chronic depression and bipolar disorder. Blood work from today has not been done. Yesterday's blood work has been noted. He is stable on 4 L of oxygen by nasal cannula. He does not utilize any form of O2 on outpatient basis. He is afebrile. On 01/22/2023, the patient is quite stable. He is on oxygen and is currently on 3 L/m nasal cannula. Ultrasound the chest was done and the patient had a sizable left-sided pleural effusion that was marked. We will accordingly going to proceed with a thoracentesis and the patient ultimately is going to interventional radiology to undergo a paracentesis. Objective - Vital Signs Vital signs: Vital Signs Temp 98.0 F 01/22/23 07:01 Pulse 106 H 01/22/23 07:46 Resp 18 01/22/23 07:01 BP 111/80 01/22/23 07:01 Pulse Ox 95 01/22/23 07:46 FiO2 21 01/22/23 07:46 Intake & Output 01/21/23 01/22/23 01/22/23 18:59 06:59 18:59 Intake Total 700 480 Balance 700 480 Intake: Oral 700 480 Other: Voiding Method Toilet Toilet # Voids 4 1 - Exam GENERAL EXAM: Alert, 57-year-old male patient, on 3 L nasal cannula, comfortable in no apparent distress. HEAD: Normocephalic. EYES: Normal reaction of pupils, equal size. NOSE: Clear with pink turbinates. THROAT: No erythema or exudates. NECK: No masses, no JVD. CHEST: No chest wall deformity. LUNGS: Equal air entry with few scattered rhonchi, crackles in the left lung base. CVS: S1 and S2 normal with no audible murmur, regular rhythm. ABDOMEN: Distended. Normal bowel sounds, no guarding or rigidity. SPINE: No scoliosis or deformity SKIN: No rashes CENTRAL NERVOUS SYSTEM: No focal deficits, tone is normal in all 4 extremities. EXTREMITIES: There is no peripheral edema. No clubbing, no cyanosis. Peripheral pulses are intact. - Labs CBC & Chem 7: 01/22/23 06:18 01/22/23 06:18 Labs: Abnormal Lab Results - Last 24 Hours (Table) 01/22/23 01/22/23 Range/Units 06:18 06:18 RBC 4.17 L (4.40-5.60) X 10*6/uL Hgb 9.6 L (13.0-17.0) g/dL Hct 31.8 L (39.6-50.0) % MCV 76.3 L (80.0-97.0) fL MCH 23.0 L (27.0-32.0) pg MCHC 30.2 L (32.0-37.0) g/dL RDW 20.9 H (11.5-14.5) % BUN/Creatinine Ratio 28.83 H (12.00-20.00) Ratio Calcium 8.5 L (8.7-10.3) mg/dL Microbiology - Last 24 Hours (Table) 01/19/23 00:30 Blood Culture - Preliminary Blood No Growth after 72 hours 01/19/23 00:15 Blood Culture - Preliminary Blood No Growth after 72 hours 01/19/23 12:29 Gram Stain - Final Sputum Sputum Culture - Final Melida albicans Assessment and Plan Plan: Acute hypoxemic respiratory failure secondary to a left lower lobe infiltrate. Suspect community-acquired pneumonia. Procalcitonin 0.20. Currently on ceftriaxone and azithromycin Large left-sided pleural effusion contiguity shortness of breath and acute hypoxic respiratory failure Abdominal distention with ascites requiring periodic paracentesis Atypical chest pain, acute coronary syndrome ruled out Right lower extremity with pain and tingling numbness. Doppler ruled out DVT History of stage III bile duct cancer being treated at the [facility] in [place] History of paralyzed vocal cord secondary to metastatic disease History of bipolar disorder History of depression History of previous PE/DVT currently on Peridex Plan: Keep the patient off pradaxa Proceed with a thoracentesis of the left lung today Paracentesis today Titrate FiO2 We'll continue to follow U
--- NOTE | 2023-01-22 11:21 | P.PCN ---
Date of Procedure: 01/22/23 Preoperative Diagnosis: Left-sided pleural effusion Postoperative Diagnosis: Left-sided pleural effusion Procedure(s) Performed: Left-sided thoracentesis Anesthesia: local Surgeon: Carmela Romero Pathology: other Condition: stable Disposition: floor Operative Findings: A time out was performed and the chest x-ray was reviewed, the appropriate side was confirmed and marked. My hands were washed immediately prior to the procedure. I wore a surgical cap, mask with protective eyewear, sterile gown and sterile gloves throughout the procedure. The patient was prepped and draped in a sterile manner using chlorhexidine scrub after the appropriate level was percussed and confirmed by ultrasound. 1% lidocaine was used to anesthesize the skin, subcutaneous tissue, superior aspect of the rib periosteum and parietal pleura. A finder needle was then introduced over the superior aspect of the rib to locate the pleural fluid; 2colored fluid was aspirated at a depth of approximately 2 cm. A 10-blade scalpel was used to lamont the skin at the insertion site. The [id number] needle was then introduced through the skin incision into the pleural space using negative aspiration pressure and the red colometric indicator to confirm appropriate positioning of the needle. The thoracentesis catheter was then threaded without difficulty. 950ml of turbid colored fluid was removed without difficulty. The catheter was then removed. No immediate complications were noted during the procedure. A post-procedure chest x-ray is pending at the time of this note. The fluid will be sent for studies. Estimated blood loss is 0cc
--- NOTE | 2023-01-22 11:54 | XR ---
EXAMINATION TYPE: XR chest 1V DATE OF EXAM: 01/22/2023 HISTORY: Status post left-sided thoracentesis COMPARISON: None. TECHNIQUE: Single view of the chest is submitted. FINDINGS: No evidence for left-sided pneumothorax. Left-sided thoracentesis with diminution in left-sided effus ion. There is no evidence for focal infiltrate. The heart is stable. Hilar and mediastinal structures are within normal limits. Degenerative changes are seen of the dorsal spine. IMPRESSION: 1. No evidence for left-sided pneumothorax. Left-sided thoracentesis with diminution in left-sided e ffusion.
--- NOTE | 2023-01-22 12:28 | US ---
Ultrasound-guided paracentesis. DATE OF EXAM: 01/22/2023 CLINICAL HISTORY: Ascites The procedure was discussed with the patient. The risks, complications, benefits, and alternatives we re discussed and any questions were answered. Informed consent was obtained. The patient was placed s upine on the ultrasound table and prepped and draped in the usual sterile fashion. All elements of maximal barrier technique were utilized. Under ultrasound guidance, access into the left lower quadrant was obtained, via the paracentesis catheter system and direct ultrasound guidance . The patient was stable throughout the procedure and remained stable upon discharge from Department of Radiology. IMPRESSION: Successful paracentesis under ultrasound guidance.
--- NOTE | 2023-01-22 15:30 | P.PN ---
Subjective Progress Note Date: 01/22/23 (delayed charting seen at 1030) Patient is a 57-year-old male with stage IV cholangiocarcinoma (diagnosed in 2019, currently following with [facility], status post multiple cycles of chemotherapy and radiation, requiring weekly paracentesis for the last 6 weeks), history of DVT/PE on Protonix who initially presented to the emergency room with shortness of breath and chest discomfort. The ER he underwent an extensive evaluation. Chest x-ray showed a large left-sided pleural effusion with left lower lobe infiltrate and cardiomegaly, bilateral lower extremity venous Dopplers were negative for pulmonary embolism, laboratory analysis was remarkable for hemoglobin of 10.6, alk phos 491, and INR 1.2. He was admitted for community-acquired pneumonia with left-sided pleural effusion and ascites. Pulmonary was consulted. He was started on Rocephin and Zithromax. Patient was on Protonix on therefore was unable to have paralumbar and thoracentesis until 01/22. Imaging: Chest x-ray-left pleural effusion with left lower lobe atelectasis, new compared to old exam Bilateral lower extremity Dopplers: Negative for DVT Chest ultrasound: 3.1 cm skin to fluid distant. Patient seen and examined at bedside. He is feeling better after the thoracentesis of his left long. He denies any current nausea or vomiting. He is still feeling very distended. He reports that he has required paracentesis once weekly for the last 5-6 weeks and that he is filling with fluid faster and faster. [facility]. He has not required holding his Protonix for prior paracentesis. Vital signs reviewed General: nontoxic, no distress, appears at stated age Cardiovascular: S1S2 reg, no murmur, positive posterior tibial pulse bilateral, Lungs: CTA bilateral, no rhonchi, no rales , no accessory muscle use Abdominal: soft, nontender to palpation, no guarding, no appreciable organomegaly Ext: Distended, nontender to palpation no gross muscle atrophy, trace edema bilateral, no contractures Neuro: CN II-XI grossly intact, no focal neuro deficits Psych: Alert, oriented, appropriate affect Assessment: Left-sided pleural effusion related to stage IV cholangiocarcinoma and ascites Community-acquired pneumonia Acute hypoxic respiratory failure Imaging: -Ultrasound-guided paracentesis: Successful paracentesis Data Review: Exam vital signs: Temperature 90.8, pulse 101, respirations 18, blood pressure 111/80, O2 sat 93% on room air Laboratory analysis on 01/22 remarkable for hemoglobin 9.6 (9.1 on 01/20). Basic metabolic profile unremarkable. Plan: -Pulmonary recs mentation reviewed: Patient underwent successful thoracentesis with removal of 950 mL of fluid. -Rocephin 2 g every 24 hours day #4, patient completed 3 days of Zithromax -Continue with Dilaudid 2 mg oral every 4 hours as needed for pain or Dilaudid 0.5 mg IV push every 2 hours for pain. -Anticipate patient to be discharged in a.m. if continues to have improvement in his breathing and pain. We will follow up with his oncologist upon discharge. DVT prophylaxis: Pradaxa on hold givne procedure, will resume in AM This dictation was prepared using [employer] voice recognition software. Though every attempt is made to correct errors during during dictation some may still exist. Objective - Vital Signs Vital signs: Vital Signs Temp 98.0 F 01/22/23 07:01 Pulse 80 01/22/23 15:21 Resp 16 01/22/23 14:00 BP 108/75 01/22/23 14:00 Pulse Ox 97 01/22/23 14:00 FiO2 21 01/22/23 07:46 Intake & Output 01/21/23 01/22/23 01/22/23 18:59 06:59 18:59 Intake Total 700 480 240 Balance 700 480 240 Intake: Oral 700 480 240 Other: Voiding Method Toilet Toilet # Voids 4 1 - Labs CBC & Chem 7: 01/22/23 06:18 01/22/23 06:18 Labs: Abnormal Lab Results - Last 24 Hours (Table) 01/22/23 01/22/23 Range/Units 06:18 06:18 RBC 4.17 L (4.40-5.60) X 10*6/uL Hgb 9.6 L (13.0-17.0) g/dL Hct 31.8 L (39.6-50.0) % MCV 76.3 L (80.0-97.0) fL MCH 23.0 L (27.0-32.0) pg MCHC 30.2 L (32.0-37.0) g/dL RDW 20.9 H (11.5-14.5) % BUN/Creatinine Ratio 28.83 H (12.00-20.00) Ratio Calcium 8.5 L (8.7-10.3) mg/dL Microbiology - Last 24 Hours (Table) 01/19/23 00:30 Blood Culture - Preliminary Blood No Growth after 72 hours 01/19/23 00:15 Blood Culture - Preliminary Blood No Growth after 72 hours
[2023-01-22] MEDS: traZODone HCL 50 MG TAB PO SCH (20:49)
[2023-01-22] MEDS: ACETAMINOPHEN TAB 500 MG TAB PO PRN (20:49)
[2023-01-22 23:51] LABS: Appearance,BF Slightly Cloudy
[2023-01-22 23:53] LABS: Appearance,BF Slightly Hazy
[2023-01-23 00:52] LABS: LDH, Body Fluid Source Pleural Fluid; T. Protein, Body Fluid Source Pleural Fluid; Total Protein, Body Fluid 3800 mg/dL
[2023-01-23 00:52] LABS: Amylase, Fluid Source Paracentesis Fluid; Amylase,Body Fluid 10 U/L; Glucose, BF Source Paracentesis Fluid; Glucose, Body Fluid 110 mg/dL; LDH, Body Fluid Source Paracentesis Fluid; T. Protein, Body Fluid Source Paracentesis Fluid; Total Protein, Body Fluid 2360 mg/dL
[2023-01-23] MEDS: HYDROmorphone 0.5 MG/0.5 ML SYRINGE IVP PRN ×7 (02:02→15:13)
[2023-01-23] MEDS: ALBUTEROL NEBULIZED 2.5 MG/3 ML INHALATION PRN ×4 (02:53→15:48)
[2023-01-23] MEDS: ONDANSETRON 4 MG/2 ML VIAL IVP PRN ×2 (03:06→13:06)
[2023-01-23] MEDS: ACETAMINOPHEN TAB 500 MG TAB PO PRN (03:31)
--- NOTE | 2023-01-23 11:55 | P.PN ---
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 He states he has stage III bile duct cancer and recurrent ascites requiring paracentesis nearly weekly. He follows at the [facility] in [place] for his medical needs. No records available currently. He presented here to the emergency room last evening with increasing shortness of breath, chest pain, dyspnea on exertion. He is also having issues with right lower extremity tingling and numbness sensations mostly near the lateral right thigh. Doppler of the right leg was negative for DVT. Chest x-ray does show a left pleural effusion and left lower lobe infiltrate. Mild cardiomegaly. White count 7.8. Hemoglobin 10.6. Platelets 227. INR 1.2. Sodium 136. Potassium 3.9. Bicarb 23. BUN 20. Creatinine 0.69. Glucose 128. Troponins negative 3. Pro-calcitonin 0.20. Urinalysis clean. Influenza screen negative. RSV screen negative. COVID-19 screen negative. He is seen today in consultation on the regular medical floor. He is currently resting comfortably in bed. Awake and alert in no acute distress. His voice is quite soft due to the vocal cord paralysis. He is maintaining O2 saturations in the 90s on 3 L/m per nasal cannula. He has a loose nonproductive cough. His abdomen is quite distended. He is afebrile. Hemodynamically stable. He's been initiated on ceftriaxone and azithromycin. The patient is seen today 01/20/2023 in follow-up on the regular medical floor. He is resting comfortably in bed. Awake and alert in no acute distress. Feeling a bit better today compared to yesterday. Maintaining good O2 saturations in the mid to upper 90s on 4 L high flow nasal cannula. He is afebrile. Hemodynamically stable. Chest x-ray reveals bibasilar infiltrates. Small left pleural effusion. Mild cardiomegaly. Blood cultures revealed no growth. Urine culture and sputum cultures pending. White count 4.9. Hemoglobin 9.1. Platelets 193. Sodium 136. Potassium 3.9. Bicarb 27. BUN 17. Creatinine 0.7. Pro-calcitonin 0.20. Continued on antibiotics in the form of ceftriaxone and azithromycin. Remains on Pradaxa. On today's evaluation of 01/21/2023, the patient is off anticoagulants. The patient is supposed underwent paracentesis tomorrow. At same time, the patient has a left-sided pleural effusion that was noted on the chest x-ray. The pa ryan will benefit from a thoracentesis also. We'll keep the patient off anticoagulants for at least 24-48 hours prior to doing any procedures. The patient is known to have biliary carcinoma, being treated on outpatient basis. The patient is also known to have previous history of DVT/pulmonary embolism maintained on prdaxa and the patient is also known to have a vocal cord paralysis with chronic hoarseness and this was attributed to his underlying malignancy. Is known to have chronic depression and bipolar disorder. Blood work from today has not been done. Yesterday's blood work has been noted. He is stable on 4 L of oxygen by nasal cannula. He does not utilize any form of O2 on outpatient basis. He is afebrile. On 01/22/2023, the patient is quite stable. He is on oxygen and is currently on 3 L/m nasal cannula. Ultrasound the chest was done and the patient had a sizable left-sided pleural effusion that was marked. We will accordingly going to proceed with a thoracentesis and the patient ultimately is going to interventional radiology to undergo a paracentesis. On 01/23/2023, the patient is looking great. His breathing is improved. He underwent a thoracentesis yesterday. The fluid is an exudate and the fluid cytology is still pending for now. No complications. No pneumothorax.. He is currently on room air oxygen. He also had a total of 60 L of a cystic fluid drained from his abdomen. No other complaints otherwise for now. Objective - Vital Signs Vital signs: Vital Signs Temp 98.3 F 01/23/23 07:50 Pulse 84 01/23/23 08:13 Resp 14 01/23/23 07:50 BP 108/70 01/23/23 07:50 Pulse Ox 95 01/23/23 08:03 FiO2 21 01/22/23 07:46 Intake & Output 01/22/23 01/23/23 01/23/23 18:59 06:59 18:59 Intake Total 480 350 350 Balance 480 350 350 Intake: Oral 480 350 350 Other: Voiding Method Toilet Toilet Toilet # Voids 2 2 - Exam GENERAL EXAM: Alert, 57-year-old male patient, on RA comfortable in no apparent distress. HEAD: Normocephalic. EYES: Normal reaction of pupils, equal size. NOSE: Clear with pink turbinates. THROAT: No erythema or exudates. NECK: No masses, no JVD. CHEST: No chest wall deformity. LUNGS: Equal air entry with few scattered rhonchi, crackles in the left lung base. CVS: S1 and S2 normal with no audible murmur, regular rhythm. ABDOMEN: Distended. Normal bowel sounds, no guarding or rigidity. SPINE: No scoliosis or deformity SKIN: No rashes CENTRAL NERVOUS SYSTEM: No focal deficits, tone is normal in all 4 extremities. EXTREMITIES: There is no peripheral edema. No clubbing, no cyanosis. Peripheral pulses are intact. - Labs CBC & Chem 7: 01/22/23 06:18 01/22/23 06:18 Labs: Microbiology - Last 24 Hours (Table) 01/19/23 00:30 Blood Culture - Preliminary Blood No Growth after 96 hours 01/19/23 00:15 Blood Culture - Preliminary Blood No Growth after 96 hours 01/22/23 12:10 Anaerobic Culture - Preliminary Ascites Fluid 01/22/23 12:10 Body Fluid Culture - Preliminary Ascites Fluid Assessment and Plan Plan: Acute hypoxemic respiratory failure , recovered and the patient is currently on room air oxygen Large left-sided pleural effusion contiguity shortness of breath and acute hypoxic respiratory failure, thoracentesis was done and the patient had a total of 1 L of pleural fluid aspirated Abdominal distention with ascites requiring periodic paracentesis, had a total of 6 L of fluid aspirated from the abdomen yesterday Atypical chest pain, acute coronary syndrome ruled out Right lower extremity with pain and tingling numbness. Doppler ruled out DVT History of stage III bile duct cancer being treated at the [facility] in [place] History of paralyzed vocal cord secondary to metastatic disease History of bipolar disorder History of depression History of previous PE/DVT currently on Peridex Plan: Restart pradaxa Patient be able to get home today. I'll be glad to see him on outpatient basis if needed regarding any shortness of breath or recurrence of the left-sided pleural effusion. Pleural fluid cytology is pending for now Should be able to discharge with outpatient follow-up. This
[2023-01-23] MEDS: lamoTRIgine 100 MG TAB PO SCH (12:32)
[2023-01-23] MEDS: SENNOSIDES-DOCUSATE SODIUM 1 EACH TAB PO SCH (12:32)
[2023-01-23] MEDS: DABIGATRAN 150 MG CAP PO SCH (12:32)
[2023-01-23] MEDS: CITALOPRAM HYDROBROMIDE 20 MG TAB PO SCH (12:33)
[2023-01-23 13:27] VITALS: BP 107/73; RESP 19; TEMP 98.1
[2023-01-23 16:03] VITALS: PULSE 100
--- NOTE | 2023-01-23 18:15 | P.DS ---
Providers Date of admission: 01/19/23 00:19 Expected date of discharge: 01/23/23 Attending physician: Amy Perkins MD Consults: 01/19/23 00:15 Consult Physician Routine Consulting Provider: Karthikeyan Potter Consult Reason/Comments: hypoxia, pleural effusion, pneumonia Do you want consulting provider notified?: Yes Primary care physician: Nancy Whittaker MD Hospital Course: Discharge Diagnosis: Left-sided pleural effusion and ascities related to stage IV cholangiocarcinoma Community-acquired pneumonia Acute hypoxic respiratory failure Hisotry of pulmonary embolism and DVT Hospital Course: Patient is a 57-year-old male with stage IV cholangiocarcinoma (diagnosed in 2019, currently following with [place] and [facility], status post multiple cycles of chemotherapy and radiation, requiring weekly paracentesis for the last 6 weeks), history of DVT/PE on Protonix who initially presented to the emergency room with shortness of breath and chest discomfort. The ER he underwent an extensive evaluation. Chest x-ray showed a large left-sided pleural effusion with left lower lobe infiltrate and cardiomegaly, bilateral lower extremity venous Dopplers were negative for pulmonary embolism, laboratory analysis was remarkable for hemoglobin of 10.6, alk phos 491, and INR 1.2. He was admitted for community-acquired pneumonia with left-sided pleural effusion and ascites. Pulmonary was consulted. He was started on Rocephin and Zithromax. Patient was on Pradaxa and therefore was unable to have paralumbar and thoracentesis until 01/22. These are completed on 01/22 and patient had rapid improvement in his abdominal distention, pain, and shortness of breath. The next morning he had no recurrence of fluid on physical exam. He was determined stable for discharge with outpatient follow-up. Imaging: Chest x-ray-left pleural effusion with left lower lobe atelectasis, new compared to old exam Bilateral lower extremity Dopplers: Negative for DVT Chest ultrasound: 3.1 cm skin to fluid distant. Follow-up: Patient will complete an additional 4 days of cefdinir for possible community-acquired pneumonia, he will establish with Dr. Romero for close outpatient follow-up. I discussed with patient that his cytology from his peritoneal fluid or fluid is currently pending and will take several days to com e back. He is aware of the importance of following up with these results. I have asked him to alert his [facility] that these are pending so we will also become aware of results. He would like to have his brigida and thoras done closer to home and would consider having these done at [facility] if he could have some done on anticoagulation. Patient seen and examined at bedside. He is feeling better today. Shortness of breath is stable. No nausea or vomiting. Vital signs reviewed and stable. General: nontoxic, no distress, appears older than stated age Derm: warm, dry Head: atraumatic, normocephalic, symmetric Eyes: EOMI, no lid lag, anicteric sclera Mouth: no lip lesion, mucus membranes moist Cardiovascular: S1S2 reg, no murmur, positive posterior tibial pulse bilateral, Lungs: CTA bilateral, no rhonchi, no rales , no accessory muscle use Abdominal: soft, nontender to palpation, no guarding, no appreciable organomegaly Ext: no gross muscle atrophy, no edema, no contractures A total of 37 minutes of time were spent preparing this complex discharge summary. Patient was discharged on 01/23/23. This dictation was prepared using [employer] voice recognition software. Though every attempt is made to correct errors during during dictation some may still exist. Patient Condition at Discharge: Stable Plan - Discharge Summary Discharge Rx Participant: No New Discharge Prescriptions: New Cefdinir [Omnicef] 300 mg PO Q12HR #8 capsule Continue lamoTRIgine [LaMICtal] 100 mg PO DAILY Citalopram Hydrobromide [CeleXA] 40 mg PO DAILY Albuterol Inhaler [Ventolin Hfa Inhaler] 1 - 2 puff INHALATION RT-Q6H PRN 30 Days #1 inhaler PRN Reason: Wheezing traZODone HCL [Desyrel] 50 mg PO HS Prochlorperazine [Compazine] 10 mg PO Q6H PRN PRN Reason: Nausea Dabigatran [Pradaxa] 150 mg PO BID HYDROmorphone [Dilaudid] 2 mg PO Q4H PRN PRN Reason: Pain Sennosides [Senokot] 25.8 mg PO HS Acetaminophen Tab [Tylenol] 1,000 mg PO Q6HR PRN PRN Reason: Pain Or Fever > 100.5 Discharge Medication List Citalopram Hydrobromide [CeleXA] 40 mg PO DAILY 06/12/19 [History] lamoTRIgine [LaMICtal] 100 mg PO DAILY 06/12/19 [History] Albuterol Inhaler [Ventolin Hfa Inhaler] 1 - 2 puff INHALATION RT-Q6H PRN 30 Days #1 inhaler 09/15/19 [Rx] Acetaminophen Tab [Tylenol] 1,000 mg PO Q6HR PRN 01/18/23 [History] Dabigatran [Pradaxa] 150 mg PO BID 01/18/23 [History] HYDROmorphone [Dilaudid] 2 mg PO Q4H PRN 01/18/23 [History] Prochlorperazine [Compazine] 10 mg PO Q6H PRN 01/18/23 [History] Sennosides [Senokot] 25.8 mg PO HS 01/18/23 [History] traZODone HCL [Desyrel] 50 mg PO HS 01/18/23 [History] Cefdinir [Omnicef] 300 mg PO Q12HR #8 capsule 01/23/23 [Rx] Follow up Appointment(s)/Referral(s): Nancy Whittaker MD [Primary Care Provider] - 1-2 days (Patient needs to call to make a follow up appointment) Carmela Romero MD [STAFF PHYSICIAN] - 02/12/23 2:00 pm Patient Instructions/Handouts: Cefdinir (By mouth), Pneumonia (DC) Activity/Diet/Wound Care/Special Instructions: Activity: as tolerated Diet: regular Special Instructions: Return with worsening shortness of breath, abdominal pain, abdominal distension or fevers. Lashay Yepez Interventional Radiology: (Scheduled through [facility]) [address] [place] [address] Get Directions Fax: Discharge Disposition: HOME SELF-CARE
== END 2023-01-23 18:15 | disposition home or self-care (01) | DRG 435 ==
LOC: EC 21:41 → 4SSUR 01-19 00:19 → 5NMEDONC 01-22 17:57
PROVIDERS: ADMIT Internal Medicine; ATTEND Internal Medicine
PROC: 0W9B3ZX Drainage of Left Pleural Cavity, Percutaneous Approach, Diagnostic (ICD-10-PCS; principal; 2023-01-22)
PROC: 0W9G3ZZ Drainage of Peritoneal Cavity, Percutaneous Approach (ICD-10-PCS; 2023-01-22)
DX: C22.1 Intrahepatic bile duct carcinoma (principal); J18.9 Pneumonia, unspecified organism; J96.01 Acute respiratory failure with hypoxia; R18.0 Malignant ascites; J44.0 Chronic obstructive pulmonary disease with (acute) lower respiratory infection; J91.0 Malignant pleural effusion; J98.11 Atelectasis; J38.00 Paralysis of vocal cords and larynx, unspecified; I11.9 Hypertensive heart disease without heart failure; F31.9 Bipolar disorder, unspecified; Z20.822 Contact with and (suspected) exposure to COVID-19; Z28.310 Unvaccinated for COVID-19; G89.3 Neoplasm related pain (acute) (chronic); D50.9 Iron deficiency anemia, unspecified; F41.9 Anxiety disorder, unspecified; Z79.02 Long term (current) use of antithrombotics/antiplatelets; Z79.899 Other long term (current) drug therapy; Z92.21 Personal history of antineoplastic chemotherapy; Z86.711 Personal history of pulmonary embolism; Z86.718 Personal history of other venous thrombosis and embolism; Z92.3 Personal history of irradiation; Z87.891 Personal history of nicotine dependence; Z88.0 Allergy status to penicillin; Z88.8 Allergy status to other drugs, medicaments and biological substances
CPT/HCPCS: 36415; 49083; 71045; 71046; 76604; 80048; 80053; 81001; 82150; 82945; 83615; 83735; 83880; 84145; 84157; 84484; 85025; 85610; 85730; 87040; 87070; 87075; 87086; 87205; 87636; 88108; 88305; 88341; 88342; 89050; 93005; 94640; 94760; 96365; 96367; 96375; 99285